=== PATIENT | male | born 1955 | race African-American/Black ===

== ENCOUNTER 2019-06-03 08:28 | Outpatient (CLI) | payer OTHER, SELFPAY ==
--- NOTE | 2019-06-03 08:34 | ECHO_ITS ---
Patient Info Name: Angel Lamas Age: 63 years : 1955 Gender: Male Ht: 72 in Wt: 200 lbs BSA: 2.16 m2 HR: 64 bpm BP: 172 / 86 mmHg Technical Quality: Fair Exam Date: 06/03/2019 8:43 AM Exam Location: [facility] Patient Status: Outpatient Admit Date: 06/03/2019 Staff Ordering Physician: Cade Houston MD Glass Production Machine Operator: Becky Starr RDCS Attending Provider: Cade Houston MD Referring Physician: Rosemarie PAYNE; Exam Type: CA echo doppler color flow Study Info Indications R01.1 - Cardiac murmur, unspecified Complete two-dimensional, color flow and Doppler transthoracic echocardiogram is performed. Summary 1. Left ventricular chamber dimension is normal. 2. Ventricular septum is sigmoid shaped. 3. Left ventricular systolic function is normal, estimated at 65-70%. 4. The left ventricular diastolic function is normal. 5. There is mild aortic valve sclerosis. 6. Mild systolic anterior motion of mitral valve. 7. The mitral valve has thickened leaflets. 8. No pulmonary hypertension, estimated pulmonary arterial systolic pressure is 30 mmHg. 9. There is trace pulmonic regurgitation. Left Ventricle Tissue doppler is not performed. Ventricular septum is sigmoid shaped. Left ventricular chamber dimension is normal. Left ventricular systolic function is normal, estimated at 65-70%. The left ventricular diastolic function is normal. Right Ventricle Right ventricular chamber dimension is normal. Right ventricular systolic function is normal. Left Atria Left atrial chamber dimension is normal. Right Atria Right atrial chamber dimension is normal. Aortic Valve The aortic valve is trileaflet. There is mild aortic valve sclerosis. There is no aortic valve stenosis. There is no aortic valve regurgitation. Pulmonic Valve There is trace pulmonic regurgitation. Mitral Valve Mild systolic anterior motion of mitral valve. The mitral valve has thickened leaflets. There is no mitral valve stenosis. There is no mitral valve regurgitation. Tricuspid Valve There is no tricuspid valve regurgitation. No pulmonary hypertension, estimated pulmonary arterial systolic pressure is 30 mmHg. Pericardium/Pleural There is no pericardial effusion. Inferior Vena Cava Normal inferior vena cava with >50% collapse upon inspiration consistent with normal right atrial pressure, 5 mmHg. Aorta The aortic root size at the sinus of Valsalva is normal. Tricuspid Valve Name Value Normal TV Regurgitation Doppler TR Peak Velocity 248 cm/s TR Peak Gradient 25 mmHg Estimated PAP/RSVP RA Pressure 5 mmHg <=5 PA Systolic Pressure 30 mmHg <36 RV Systolic Pressure 30 mmHg <36 Report Signatures
== END 2019-06-03 08:29 | disposition home or self-care (01) ==
PROVIDERS: PCP Family Medicine; Visit Provider Family Medicine
DX: R01.1 Cardiac murmur, unspecified (principal); I35.1 Nonrheumatic aortic (valve) insufficiency
CPT/HCPCS: 93306

== ENCOUNTER 2021-02-21 18:11 | Emergency (ER) | payer OTHER, SELFPAY ==
--- NOTE | ~2021-02-21 | CT_ITS ---
IMPRESSION: Numerous bilateral renal masses of variable size and attenuation, some with calcification. Multiple cysts are suspected. Benign or solid malignan t neoplasm is not excluded on this limited noncontrast examination. Consider MR I correlation. Diverticulosis of left and right colon; no CT evidence of diverticulitis Prostate enlargement and calcification. EXAMINATION: CT abdomen pelvis wo con DATE: 02/21/2021 19:44 INDICATION: Hematuria TECHNIQUE: Computed tomography (CT) of the abdomen and pelvis was performed without intravenous contr ast. Automated exposure control and iterative reconstruction technique were employed. Exam dose: 462 .84 mGy-cm total exam DLP. COMPARISON: 11/15/2016 ultrasound of the kidneys FINDINGS: The lung bases are clear. Normal heart size. No pericardial or pleural effusion. Small sliding hiatal hernia. The liver, gallbladder, bile ducts, spleen, pancreas and pancreatic duct are unremarkable. Normal morphology of the right adrenal gland. There are numerous bilateral renal masses, some with calcification. These are of variable size as wel l as variable attenuation. Multiple cysts are likely but benign or malignant solid renal neoplasm on either side is not excluded on this limited noncontrast examination. Prostate enlargement and calcification. The urinary bladder is unremarkable. Diverticulosis of left and right colon; no CT evidence of diverticulitis. Normal appendix. No bowel o bstruction, bowel wall thickening, pneumatosis or intraperitoneal free air is detected. There is abdominal aortic calcification but no aneurysm. No intraperitoneal or retroperitoneal or pelvic mass lesion or adenopathy or ascites is noted, with t he exception of possible renal masses. Small fat-containing umbilical hernia. Status post anterior and posterior and interbody lumbar spinal fusion at L4 S1. Severe bilateral hip osteoarthritis. IMPRESSION: Numerous bilateral renal masses of variable size and attenuation, some with calcificatio n. Multiple cysts are suspected. Benign or solid malignant neoplasm is not excluded on this limited n oncontrast examination. Consider MRI correlation. Diverticulosis of left and right colon; no CT evidence of diverticulitis Prostate enlargement and calcification. Reviewed, dictated and finalized at [facility]. Reviewed, dictated and finalized at location [facility]. [place] MARKETING COORDINATOR
[2021-02-21 18:19] VITALS: BP 130/95; PULSE 80; RESP 18; TEMP 36.6; O2SAT 95
[2021-02-21 18:31] VITALS: BP 132/84; PULSE 79; RESP 15; O2SAT 98
--- NOTE | 2021-02-21 18:45 | ED.GENADULT ---
HPI - General Adult General Chief complaint: Urogenital-Male <Srinath Damon PA-C - Last Filed: 02/21/21 20:46> Stated complaint: Blood in Urine <Srinath Damon PA-C - Last Filed: 02/21/21 20:46> Time Seen by Provider: 02/21/21 18:43 <Srinath Damon PA-C - Last Filed: 02/21/21 20:46> Source: patient <TAMIKO Vera Last Filed: 02/21/21 20:46> Mode of arrival: ambulatory <TAMIKO Vera Last Filed: 02/21/21 20:46> Limitations: no limitations <TAMIKO Vera Last Filed: 02/21/21 20:46> History of Present Illness HPI narrative: Patient 65-year-old male with chief complaint of painful urination and hematuria over the past 4 days. Patient states that he has also experienced urinary urgency. Patient denies a history of recurrent urinary tract infections or kidney stones. Patient denies any fever, abdominal pain, chills, nausea, vomiting, diarrhea or any other symptoms. <TAMKIO Vera Last Filed: 02/21/21 20:46> Related Data Home medications: Home Medications Medication Instructions Recorded Confirmed amitriptyline 02/21/21 amlodipine 02/21/21 atorvastatin 02/21/21 hydrochlorothiazide 02/21/21 metformin mg PO 02/21/21 02/21/21 quinapril mg 02/21/21 <Srinath Damon PA-C - Last Filed: 02/21/21 20:46> Allergies/adverse reactions: Allergies Allergy/AdvReac Type Severity Reaction Status Date / Time No Known Allergies Allergy Mild Verified 02/21/21 18:32 <TAMIKO Vera Last Filed: 02/21/21 20:46> Review of Systems Review of Systems: CONSTITUTIONAL: Denies fever, chills, or sweats. EYES: Denies visual changes, redness, or discharge. ENT: Denies rhinorrhea, congestion, sore throat, or otalgia. CARDIOVASCULAR: Denies chest pain, palpitations, or edema. RESPIRATORY: Denies cough or dyspnea. GASTROINTESTINAL: Denies abdominal pain, nausea, vomiting, or diarrhea. GENITOURINARY: Reports dysuria or hematuria. SKIN: Denies rash or itching. MUSCULOSKELETAL: Denies back pain, joint pain, or myalgia. NEUROLOGIC: Denies headache, numbness, dizziness, or weakness. PSYCHIATRIC: Denies anxiety or depression. <Srinath Damon PA-C - Last Filed: 02/21/21 20:46> PMFSH Past Medical History Medical History: Medical History (Updated 02/21/21 @ 20:43 by Srinath Damon PA-C) Acute diverticulitis Acute non-recurrent maxillary sinusitis BMI 28.0-28.9,adult Dermatitis Encounter for prostate cancer screening Heart murmur on physical examination Persistent microalbuminuria associated with type 2 diabetes mellitus <Srinath Damon PA-C - Last Filed: 02/21/21 20:46> Family History Family History: Family History (Updated 09/25/18 @ 16:20 by DOCTOR UNKNOWN) Father Patient's father is in good health Family history of cardiovascular disease <Srinath Damon PA-C - Last Filed: 02/21/21 20:46> Social History Social History: Social History Smoking status: Never smoker Alcohol intake: never <Srinath Damon PA-C - Last Filed: 02/21/21 20:46> Exam Narrative: GENERAL: Well-appearing, well-nourished, and in no acute distress. Patient smiling and talking normally. CHEST: Clear to auscultation. No respiratory distress. No wheezes rales or rhonchi HEART: Regular rate and rhythm. ABDOMEN: Soft, nontender, nondistended, normal active bowel sounds. SKIN: Warm, dry, no rash. NEURO: Alert and oriented x3. PSYCH: Normal mood and affect. <Srinath Damon PA-C - Last Filed: 02/21/21 20:46> Course METAL SORTER/PA Physician Supervision For this patient encounter, I reviewed the METAL SORTER or PA documentation, treatment plan, and medical decision making. <Fer Alexis MD - Last Filed: 02/21/21 21:43> Vital Signs Vital signs: Vital Signs Temperature 97.9 F 02/21/21 18:19 Pulse Rate 80 02/21/21 18:19 Respiratory Rate 18 02/21/21 18:19 Blood
[2021-02-21 19:26] LABS: Basophils Percent Auto 0.5 % (0.2-1.2); Eosinophils Absolute Auto 0.1 K/mm3 (0-0.3); Eosinophils Percent Auto 1.6 % (0-4.4); Hematocrit 41.6 % (42.0-52.0); Hemoglobin 12.5 g/dL (14.0-18.0); Immature Granulocyte Absolute 0.01 K/mm3 (0.00-0.031); Immature Granulocyte Percent A 0.2 % (0-0.5); Immature Platelet Fraction Pct 9.7 % (0.9-11.2); Lymphocytes Absolute Auto 2.98 K/mm3 (0.9-3.2); Lymphocytes Percent Auto 47.1 % (18.3-44.2); Mean Corpuscular Hemoglobin 21.3 pg (26-34); Mean Corpuscular Volume 70.7 fl (80-100); Mean Platelet Volume 11.9 fl (7.4-10.4); Monocytes Absolute Auto 0.4 K/mm3 (0.1-0.6); Monocytes Percent Auto 5.8 % (2.6-8.5); Neutrophils Absolute Auto 2.8 K/mm3 (1.3-6.7); Neutrophils Percent Auto 44.8 % (45.5-73.1); Platelet Count Result 201 k/mm3 (150-375); Red Blood Count 5.88 M/mm3 (4.6-6.20); Red Cell Distribution Width 15.4 % (11.5-14.5); White Blood Count 6.3 K/mm3 (4.5-10.0)
[2021-02-21 19:34] LABS: Add Urine Microscopic? YES; Appearance Urine Cloudy (Clear); Bilirubin Urine Negative (Negative); Blood Urine 3+ (Negative); Color Urine Red (Yellow); Glucose Urine UA Negative (Negative); Ketones Urine Negative (Negative); Leukocyte Esterase Ur Negative LEU/UL (Negative); Nitrate Urine Negative (Negative); Protein Urine 2+ mg/dL (Negative); RBC Urine >75 /hpf (0-2); Specific Grav Ur 1.015 (1.001-1.035); Urobilinogen Urine Negative mg/dL (<2.0)
[2021-02-21 19:37] LABS: Alanine Aminotransferase 20 U/L (4-50); Albumin Level 4.8 g/dL (3.5-5.1); Alkaline Phosphatase 75 U/L (38-126); Anion Gap 12 mmol/L (8-16); Aspartate Amino Transferase 25 U/L (17-59); Bilirubin,Total 0.4 mg/dL (0.2-1.3); Blood Urea Nitrogen 37 mg/dL (9-20); Calcium 10.2 mg/dL (8.4-10.2); Carbon Dioxide 22 mmol/L (22-30); Chloride 100 mmol/L (98-107); Estimated CRCL calculation 40 ml/min; Estimated Glomerular Filt Rate 43; Glucose 111 mg/dL (65-110); Potassium 4.8 mmol/L (3.4-5.0); Sodium 134 mmol/L (137-145)
== END 2021-02-21 20:59 | disposition home or self-care (01) ==
PROVIDERS: Emergency Medicine; Emergency Provider Emergency Medicine; PCP Family Medicine
DX: N28.89 Other specified disorders of kidney and ureter (principal); R31.9 Hematuria, unspecified; E11.9 Type 2 diabetes mellitus without complications; Z79.84 Long term (current) use of oral hypoglycemic drugs
CPT/HCPCS: 36415; 74176; 80053; 81001; 85025; 85055; 87086; 99284

== ENCOUNTER 2021-08-15 13:42 | Outpatient (CLI) | payer OTHER, SELFPAY ==
--- NOTE | 2021-08-15 14:00 | ECG_ITS ---
Measurements Intervals [place] Rate: 79 P: 67 AR: 178 QRS: 36 QRSD: 89 T: 79 QT: 367 QTc: 421 Interpretive Statements SINUS RHYTHM BASELINE ARTIFACT RSR' V1/V2 LOW-VOLTAGE QRS IN LIMB LEADS BORDERLINE ECG NO PREVIOUS ECG AVAILABLE FOR COMPARISON Electronically Signed On 08-15-2021 15:00:01 CDT by Oscar Hyde M.D.
== END 2021-08-15 13:43 | disposition home or self-care (01) ==
LOC: ANHSURGERY 13:48
PROVIDERS: PCP Family Medicine; Visit Provider Surgery
DX: K40.90 Unilateral inguinal hernia, without obstruction or gangrene, not specified as recurrent (principal); K42.9 Umbilical hernia without obstruction or gangrene
CPT/HCPCS: 36415; 86850; 86900; 86901; 93005

== ENCOUNTER 2021-08-23 00:22 | Day surgery (SDC) | payer OTHER, SELFPAY ==
[2021-08-10 15:01] VITALS: BMI 24.4
--- NOTE | 2021-08-10 15:10 | PC.NURSE ---
Report to the Outpatient Waiting Room, entrance under the green pavilion located off [facility], at time _0800_ on date _08/19/21_. OR Time: _1000_. - You and your visitor will be asked a series of questions to screen for COVID 19 for your protection. - Only one visitor is allowed at this time. - The patient visitor is requested to leave or wait in car when not with patient. - A mask is required within the hospital. Patients may have clear liquids (water, carbonated beverages, clear teas, apple juice) until 3 hours prior to surgery (0700 AM) with a maximum of 20 ounces. - No food from midnight until time of surgery Take the following medications with a SIP of water the morning of surgery: _AMLODIPINE_ Medications to discontinue per ANESTHESIA - ALL VITAMINS AND SUPPLEMENTS 3 DAYS PRIOR TO SURGERY, Date to take last dose 08/15/21_ Please no deodorant, or body powder the day of surgery. No jewelry (including any body piercings) or valuables the day of surgery, leave them at home. Please take a shower or bath the night before, or the morning of, surgery with an antibacterial soap. Wear comfortable, loose fitting clothing. - Jewelry must be removed prior to entering the operating room. Rings and piercings that are not removed may be cut off. - The hospital will not accept responsibility for valuables. - Please leave all valuables, including medications, at home the day of surgery. If you are going home after surgery, a licensed sales route driver must drive you home. - NO public transportation without another adult. - We recommend that an adult stay with you for 24 hours following discharge. - We also recommend that you do not drive, make important decision, drink alcoholic beverages, or take any drugs that were not prescribed by your health care provider for at least 24 hours after your discharge time. Follow any additional instructions given to you from your surgeon. HIBICLENS SHOWER AM OF SURGERY If you or anyone in your household have experienced Covid symptoms in the past week, please notify your surgeon or the nurse liaison at the phone number below for possible testing. Telephone instructions given to ___PT and asked if any additional questions and then verbalized understanding. Patient advised to call surgeon office or pre surgery nurse liaison [phone] if any additional questions.
--- NOTE | 2021-08-17 13:45 | PC.NURSE ---
Report to the Outpatient Waiting Room, entrance under the green pavilion located off [facility], at time __10:00AM on date ___08/23/21____. OR Time: _12:00PM . - You and your visitor will be asked a series of questions to screen for COVID 19 for your protection. - Only one visitor is allowed at this time. - The patient visitor is requested to leave or wait in car when not with patient. - A mask is required within the hospital. Patients may have clear liquids (water, carbonated beverages, clear teas, apple juice) until 3 hours prior to surgery with a maximum of 20 ounces. - No food from midnight until time of surgery - Infants may have breast milk until 4 hours before surgery, formula 6 hours prior to surgery. - Children will be allowed to drink immediately following surgery. If applicable, please bring a bottle or sippy cup to assist with drinking. Juice, water, soda, and popsicles are readily available. For infants on formula, please bring formula the day of surgery. Pacifiers are allowed. Take the following medications with a SIP of water the morning of surgery: __AMLODIPINE Medications to discontinue per physician __HOLD ALL VITAMINS/SUPPLEMENTS 3 DAYS PRE-OP Date to take last dose___08/19/21 Please no make-up, nail trinidadian, hairspray, perfume, deodorant, or body powder the day of surgery. No jewelry (including any body piercings) or valuables the day of surgery, leave them at home. Please take a shower or bath the night before, or the morning of, surgery with an antibacterial soap. Wear comfortable, loose fitting clothing. Children are encouraged to wear pajamas. - Jewelry must be removed prior to entering the operating room. Rings and piercings that are not removed may be cut off. - The hospital will not accept responsibility for valuables. - Please leave all valuables, including medications, at home the day of surgery. If you are going home after surgery, a licensed class c driver must drive you home. - NO public transportation without another adult. - We recommend that an adult stay with you for 24 hours following discharge. - We also recommend that you do not drive, make important decision, drink alcoholic beverages, or take any drugs that were not prescribed by your health care provider for at least 24 hours after your discharge time. For Pediatric surgeries, we recommend two adults accompany the child home (only one inside the building at this time). Follow any additional instructions given to you from your surgeon. If you or anyone in your household have experienced Covid symptoms in the past week, please notify your surgeon or the nurse liaison at the phone number below for possible testing. Telephone instructions given to __PATIENT and asked if any additional questions and then verbalized understanding. Patient advised to call surgeon office or pre surgery nurse liaison [phone] if any additional questions.
[2021-08-23] VITALS (8 sets, daily range): BP systolic 132–168; BP diastolic 76–92; PULSE 71–91; RESP 14–20; TEMP 36.2–36.7; O2SAT 100
--- NOTE | 2021-08-23 10:45 | WPDANESEPPF ---
Anes - Initial Pre Proc Eval Procedure: Operation Date: 08/23/21 12:00 Proposed Procedures p Laparoscopic Right Inguinal Hernia Repair with Mesh, Possible Open, Suture Repair of Umbilical Hernia - aHroon White MD Date/Time: 08/23/21 10:45 Surgeon: Haroon White MD Pre Op Diagnosis: Right inguinal hernia, small umbilical hernia Patient Data Age: 66 Gender: M Height: 1.83 m Weight: 81.2 kg Last Vital Signs Temp 36.2 C L 08/23/21 10:25 Pulse 90 08/23/21 10:25 Resp 18 08/23/21 10:25 BP 158/84 H 08/23/21 10:25 Pulse Ox 100 08/23/21 10:25 O2 Del Method Room Air 08/23/21 10:25 Allergies Allergy/AdvReac Type Severity Reaction Status Date / Time No Known Allergies Allergy Mild Verified 08/23/21 10:29 Home Medications Medication Instructions Recorded Confirmed Type amitriptyline 25 mg tablet 25 mg PO . q.h.s. #90 tabs 02/22/21 08/23/21 Rx amlodipine 5 mg tablet 5 mg PO DAILY #90 tabs 02/22/21 08/23/21 Rx cetirizine 10 mg tablet (All Day 5 mg PO DAILY PRN allergy symptoms 02/22/21 08/23/21 Rx Allergy (cetirizine)) #30 tabs clobetasol 0.05 % topical gel 1 applic topical BID 2 weeks #30 02/22/21 08/23/21 Rx grams metformin 500 mg tablet,extended 1,000 mg PO BID #360 tabs 02/22/21 08/23/21 Rx release 24 hr tramadol 50 mg tablet 50 mg PO Q6H PRN pain #60 tabs 03/03/21 08/23/21 Rx fluticasone propionate 50 1 spray intranasal BID #48 mL 05/02/21 08/23/21 Rx mcg/actuation nasal spray,suspension (Allergy Relief (fluticasone)) hydrochlorothiazide 12.5 mg tablet 12.5 mg PO DAILY #90 tabs 07/24/21 08/23/21 Rx methocarbamol 750 mg tablet 750 mg PO QID PRN spasms #120 tabs 07/26/21 08/23/21 Rx ascorbic acid,ascorbate sodium 250 1 yina PO QAM 08/04/21 08/23/21 History mg-elderberry fruit 12.5 mg lozenge (Sambucus Elderberry Vitamin C) diclofenac sodium 1 % topical gel 2 g topical QID 08/04/21 08/23/21 History (Arthritis Pain (diclofenac)) omega-3 fatty acids 1,000 mg 1,000 mg PO DAILY 08/04/21 08/23/21 History capsule tamsulosin 0.4 mg capsule 0.4 mg PO DAILY 08/04/21 08/23/21 History zolpidem 10 mg tablet 10 mg PO . q.h.s. PRN insomnia #30 08/08/21 08/23/21 Rx tabs atorvastatin 10 mg tablet 10 mg PO DAILY #30 tabs 08/09/21 08/23/21 Rx omeprazole 40 mg capsule,delayed 40 mg PO DAILY #30 caps 08/09/21 08/23/21 Rx release quinapril 40 mg tablet 40 mg PO QAM 08/10/21 08/23/21 History Patient hx anesthesia problems: none Family hx anesthesia problems: none Results Review: All pre-operative results and documents have been reviewed as part of the pre-operative evaluation. [facility] Past Medical History Medical History (Updated 08/09/21 @ 15:19 by Cade Houston MD) Acute diverticulitis Acute non-recurrent maxillary sinusitis BMI 24.0-24.9, adult BMI 28.0-28.9,adult Dermatitis Encounter for prostate cancer screening Heart murmur on physical examination Persistent gross hematuria Persistent microalbuminuria associated with type 2 diabetes mellitus Polycystic kidney disease Reducible right inguinal hernia Surgical History Surgical History History of back surgery 2007 and 2008 Hx of laminectomy 01/02/2020- [facility] Family History Family History Father Family history of cardiovascular disease Hypertension Cerebrovascular accident Mother Diabetes mellitus Hypertension Social History Social History Smoking packs per day: 0.5 Smoking cigarettes per day: 10.0 Years smoked: 9 Smoking pack-years: 4.50 Smoking status: Former smoker Tobacco type: cigarettes Second hand tobacco smoke exposure: No Smoking end date: 02/26/89 Additional smoking assessment comments: approx. smoked for 5-6 years Alcohol intake: current
[2021-08-23] MEDS: LACTATED RINGERS 1,000 ML 30 ML IV CONT ×2 (10:54→14:25)
[2021-08-23] MEDS: ACETAMINOPHEN 500 MG TABLET 1000 MG PO (10:55)
[2021-08-23] MEDS: KETOROLAC 15 MG/ML VIAL (*BKC) IV PUSH (10:55)
[2021-08-23 11:12] LABS: Glucose Point of Care 138 mg/dl (65-105)
--- NOTE | 2021-08-23 12:05 | WPDHPUPDATE1 ---
History and Physical Update Update Date/Time: 08/23/21 12:05 History and Physical has been reviewed, including an updated exam of the patient. There are NO changes in the patient's condition. Risks, benefits, and alternatives have been discussed and questions answered. Patient agrees to proceed with procedure.
[2021-08-23] MEDS: ceFAZolin 2 GM/D5W 50 ML 2 GM/50 ML BAG IVPB (12:09)
[2021-08-23] MEDS: LIDO 1%/EPINEPHRINE/PF 1:200,000 30 ML VIAL XX (14:14)
[2021-08-23 14:57] LABS: Glucose Point of Care 165 mg/dl (65-105)
--- NOTE | 2021-08-23 14:57 | W.PM.PROC2 ---
Procedure Note - Detailed Date of Procedure 08/23/21 Pre-op Diagnosis Right inguinal hernia, small umbilical hernia Post-op Diagnosis Same ( Indirect right inguinal hernia.) Procedure Performed 1. laparoscopic totally extraperitoneal Right inguinal hernia repair with mesh 2. Suture repair of small umbilical hernia Surgeon Haroon White MD Train Announcer PAULETTE Bernal ,OR laboratory assistant Anesthesia General Indications Bulging and pain on the right groin slight bulging and some discomfort to exam at the umbilicus. Findings Patient was found to have a small right indirect inguinal hernia with lipoma of the cord on it. This was able to be reduced into the retroperitoneum. Patient has a small approximately 8 mm umbilical fascial defect with preperitoneal fat in it. Description of Procedure After appropriate marking of the operative site prior to surgery, the patient was taken to the operating room. After induction of adequate general endotracheal anesthesia by [place] [facility] staff, the patient was carefully prepped and draped in a sterile fashion. A Brice catheter was placed without difficulty prior to prepping. A time-out was then performed confirming the procedure and site of surgery on the right. An IO band drape was used to cover the skin to prevent mesh from touching the skin and to help us avoid infection of the mesh. Following this, local anesthetic was infiltrated into the umbilical area and a transverse incision was made just below the umbilicus. On the right side of that curvilinear incision I carefully dissected down to the the anterior rectus sheath on the right and then made a 1 cm vertical slit in the fascia just off the midline. The rectus muscle was retracted to right and then just in front of the posterior rectus sheath, a dissecting balloon was passed onto the pubic bone. After placing slight pressure on the left groin area, this was insufflated with 30 pumps, while watching with the 0 degree laparoscope. It appeared that I was in the proper plane. Following this, the dissecting balloon was removed and replaced by a Murphy cannula with a circular 20 cc conforming balloon. CO2 gas was connected and the pressure in the preperitoneal space was insufflated to 8 mmHg CO2. Following this, the 0 degree laparoscope was used to carefully place two 5mm [employer] slim trocars, just to the left of midline. One suprapubic and other one assisted between the umbilicus and the pubic bone. Tedious dissection then occurred in the preperitoneal space exposing the Joshua's ligament, the cord structures, the muscular tissue anteriorly, and the retroperitoneum. The right epigastric vessels were pushed anteriorly and I dissected into the plane laterally along the anterior abdominal wall to expose the anterior surface of the peritoneum in that area. This was then able to be dissected back and we could visualize the posterior peritoneum. During this dissection an apparent indirect inguinal hernia sac was seen entering the groin area just lateral to the epigastric vessels inferiorly. This was dissected out and from the cord structures and we could see its connection to the posterior peritoneal line. I then dissected up to the level of the umbilicus and it was ready for mesh placement. After carefully confirming all sites and that the mesh would cover the direct space, I carefully rolled the Large 3D Bard mesh (Mid) and slid this through the 12 mm trocar at the umbilical level down into the preperitoneal space. This unfurled nicely and sat nicely against the right groin structures. It nicely covered all spaces and it went back nicely into the preperitoneal space along the anterior-superior iliac spine. I took a picture of it carefully, which showed that the mesh will cover the preperitoneal groin well, and had come down to the posterior border of the peritoneum. Once this was accomplished, I took the patient out of Trendelenburg position, ro
--- NOTE | 2021-08-23 14:58 | SUR.PHASEI ---
1430; ICE PACK APPLIED TO LOW ABDOMEN AND SCROTAL SUPPORT INTACT
--- NOTE | 2021-08-23 15:06 | SUR.PHASEI ---
1450; PT EATING ICE CHIPS 1505; PT ATTEMPTING TO VOID PER URINAL.
--- NOTE | 2021-08-23 15:16 | SUR.PHASEI ---
PT AWAKE AND ALERT. EATING ICE CHIPS. DENIES PAIN.
== END 2021-08-23 16:19 | disposition home or self-care (01) ==
PROVIDERS: PCP Family Medicine; Visit Provider Surgery
PROC: (CPT 49650; principal; 2021-08-23 12:00)
DX: K40.90 Unilateral inguinal hernia, without obstruction or gangrene, not specified as recurrent (principal); K42.9 Umbilical hernia without obstruction or gangrene; D17.6 Benign lipomatous neoplasm of spermatic cord; Q61.3 Polycystic kidney, unspecified; E11.9 Type 2 diabetes mellitus without complications; Z87.891 Personal history of nicotine dependence; Z79.84 Long term (current) use of oral hypoglycemic drugs
CPT/HCPCS: 49650; 49585; 82948; 88302; A9270; C1781; J0330; J0690; J1100; J1170; J1885; J2405; J2704; J2710; J3010; J7120

== ENCOUNTER 2023-09-02 19:05 | Emergency (ER) | payer OTHER, SELFPAY ==
--- NOTE | ~2023-09-02 | CT_ITS ---
CT of the Abdomen and Pelvis: Indication: Right inguinal pain Technique: 2.5 mm axial scans were obtained through the abdomen and pelvis following intravenous adm inistration of 100 cc of Omnipaque 350. Dose reduction technique was used on this scan by utilizing a utomated exposure control and iterative reconstruction technique. The dose-length product (DLP) was 3 86.96 mGy-cm. COMPARISON: 02/21/2021 Findings: Scans through the lung bases are unremarkable. The liver, spleen, pancreas, gallbladder, and adrenal glands are within normal limits. Numerous bilat eral renal cysts are again present, several which associated extensive peripheral calcification, varun lar to prior exam. There are atherosclerotic calcifications of the aorta. No lymphadenopathy. No bowel obstruction or bowel wall thickening. There is no evidence to suggest acute appendicitis. Images through the pelvis were performed. Urinary bladder unremarkable. No pelvic mass seen. No ascit es. Impression: No acute abnormality evident. Polycystic kidney disease bilaterally, which is essentially stable from prior exam. Reviewed, dictated and finalized at location M. Impression: No acute abnormality evident. Polycystic kidney disease bilaterally, which is essentially stable from prior e xam.
--- NOTE | ~2023-09-02 | XR_ITS ---
EXAM: XR hip RT 2V w AP pelvis DATE: 09/02/2023 21:46 HISTORY: hip pain . COMPARISON: None available. FINDINGS: Partially visualized lumbar fusion hardware. Normal mineralization. No fracture or disloca tion. No lytic or blastic lesion. Severe bilateral hip arthritis. No erosion or periosteal change. So ft tissues within normal limits. IMPRESSION: No acute osseous finding in the pelvis or right hip. Reviewed, dictated and finalized at location K.
[2023-09-02 19:10] VITALS: BP 121/67; PULSE 100; RESP 19; TEMP 36.4; O2SAT 100
--- NOTE | 2023-09-02 19:50 | ED.EXTPRO ---
HPI - Extremity Problem General Chief complaint: Extremity Problem,Nontraumatic Stated complaint: right leg pain Time Seen by Provider: 09/02/23 19:42 History of Present Illness HPI Narrative: Patient is a 68 year old male with history of diverticulitis, arthritis, CKD, prostate cancer, R inguinal hernia s/p hernia repair here with bilateral inguinal pain. Patient notes that his symptoms have been present for the last couple of months. He notes that it is worse on the right side than the left side. He notes that the pain starts in his right inguinal area and radiates down into his upper medial right thigh. 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 Pain is worse with opening his leg. He noes he has taken his home tramadol for pain which has quit working to help with this pain and prompted him to come into the ER. His pain is associated with a tingling feeling over the medial right thigh. He is able to ambulate and walked himself into the ER today. He lives about 10 minutes from the ER. No difficulty with urinating or defecating, no fever or chills. He does have history of multiple prior back surgeries, in [id number], does not believe his back pain is worse than usual. Related Data Home Medications Medication Instructions Recorded Confirmed omega-3 fatty acids 1,000 mg 1,000 mg PO DAILY 08/04/21 06/12/23 capsule cholecalciferol (vitamin D3) 50 50 mcg PO DAILY 01/10/23 06/12/23 mcg (2,000 unit) capsule elderberry fruit 350 mg capsule mg PO 01/10/23 06/12/23 multivitamin 1 tablet PO DAILY 01/10/23 06/12/23 vitamin K2 100 mcg capsule 100 mcg PO DAILY 01/10/23 06/12/23 ferrous sulfate 325 mg (65 mg 325 mg PO DAILY 04/05/23 06/12/23 iron) tablet (Feosol) Allergies Allergy/AdvReac Type Severity Reaction Status Date / Time No Known Allergies Allergy Mild Verified 06/12/23 14:18 Review of Systems Review of Systems: All systems reviewed & are unremarkable except as noted in HPI and below PMFSH Past Medical History Medical History Acute diverticulitis Acute non-recurrent maxillary sinusitis BMI 23.0-23.9, adult BMI 24.0-24.9, adult BMI 28.0-28.9,adult Chronic kidney disease (CKD) stage G3b/A1, moderately decreased glomerular filtration rate (GFR) between 30-44 mL/min/1.73 square meter and albuminuria creatinine ratio less than 30 mg/g BUN 24 with creatinine 1.75 with GFR 42 on 01/18/2022. BUN 23, creatinine 1.63, GFR 45 on 09/09/2022. BUN 22, creatinine 1.74, GFR 42 on 02/24/2023. Chronic right hip pain severe osteoarthritis both hips on CT of the abdomen and pelvis 02/21/2021 Dermatitis Dysuria Encounter for prostate cancer screening PSA 0.82 on 01/18/2022. PSA 0.74 on 02/24/2023 Heart murmur on physical examination Hordeolum externum left eye, unspecified eyelid (~03/26/23) Insomnia Persistent gross hematuria Urinalysis normal on 01/18/2022. Persistent microalbuminuria associated with type 2 diabetes mellitus Repeat urine microalbumin ratio was normal at 24 on 01/18/2022. Microalbumin ratio normal at 17 on 02/24/2023. Polycystic kidney disease Reducible right inguinal hernia Renal insufficiency, mild BUN 24 with creatinine 1.75 with GFR 42 on 01/18/2022. BUN 23, creatinine 1.63, GFR 45 on 09/09/2022. Right hip pain Right knee pain Right thigh pain Surgical History Surgical History H/O inguinal hernia repair Right inguinal hernia repair w mesh, suture repair of umb 08/23/21 History of back surgery 2007 and 2008 Hx of laminectomy 01/02/2020- [facility] Family History Family History Father Family history of cardiovascular disease Hypertension Cerebrovascular accident Mother Diabetes mellitus Hypertension Social History Social History (Reviewed 06/12/23 @ 14:
[2023-09-02] MEDS: MORPHINE SULFATE (*CRX) 4 MG/ML INJ IV PUSH (21:16)
[2023-09-02] MEDS: ONDANSETRON INJ 4 MG/2 ML VIAL IV PUSH (21:16)
[2023-09-02 21:17] VITALS: BP 129/84; PULSE 87; RESP 14; O2SAT 99
[2023-09-02 21:25] LABS: Basophils Percent Auto 0.4 % (0.2-1.2); Eosinophils Absolute Auto 0.1 K/mm3 (0-0.3); Eosinophils Percent Auto 1.6 % (0-4.4); Hematocrit 39.7 % (42.0-52.0); Hemoglobin 12.1 g/dL (14.0-18.0); Immature Granulocyte Absolute 0.01 K/mm3 (0.00-0.031); Immature Granulocyte Percent A 0.1 % (0-0.5); Immature Platelet Fraction Pct 9.2 % (0.9-11.2); Lymphocytes Percent Auto 44.7 % (18.3-44.2); Mean Corpuscular HGB Conc 30.5 g/dl (32-36); Mean Corpuscular Hemoglobin 21.5 pg (26-34); Mean Corpuscular Volume 70.6 fl (80-100); Mean Platelet Volume 11.1 fl (7.4-10.4); Monocytes Absolute Auto 0.4 K/mm3 (0.1-0.6); Monocytes Percent Auto 6.3 % (2.6-8.5); Neutrophils Absolute Auto 3.2 K/mm3 (1.3-6.7); Neutrophils Percent Auto 46.9 % (45.5-73.1); Platelet Count Result 197 k/mm3 (150-375); Red Blood Count 5.62 M/mm3 (4.6-6.20); Red Cell Distribution Width 15.9 % (11.5-14.5); White Blood Count 6.9 K/mm3 (4.5-10.0)
[2023-09-02 21:35] LABS: Alanine Aminotransferase 15 U/L (6-50); Albumin Level 4.8 g/dL (3.5-5.1); Alkaline Phosphatase 79 U/L (38-126); Anion Gap 15 mmol/L (4-12); Aspartate Amino Transferase 24 U/L (17-59); Bilirubin,Total 0.5 mg/dL (0.2-1.3); Blood Urea Nitrogen 36 mg/dL (9-20); Calcium 9.9 mg/dL (8.4-10.2); Carbon Dioxide 23 mmol/L (22-30); Chloride 102 mmol/L (98-107); Estimated CRCL calculation 33 ml/min; Estimated Glomerular Filt Rate 38; Glucose 103 mg/dL (65-110); Potassium 4.4 mmol/L (3.4-5.0); Sodium 140 mmol/L (137-145)
[2023-09-02] MEDS: SODIUM CHLORIDE 0.9% IV 1,000 ML 999 ML IV CONT (21:44)
[2023-09-02 21:50] LABS: Anisocytosis 1+; Microcytosis 1+ (NORMAL); Ovalocytes 1+; Platelet Estimate Adequate (Adequate); Schistocytes None Seen
[2023-09-02 21:57] LABS: Creatine Kinase 144 U/L (55-170)
[2023-09-03 00:52] VITALS: BP 155/91; PULSE 82; RESP 14; TEMP 36.8; O2SAT 100
== END 2023-09-03 01:18 | disposition home or self-care (01) ==
PROVIDERS: Emergency Provider Student in an Organized Health Care Education/Training Program; PCP Family Medicine
DX: M25.551 Pain in right hip (principal); M25.552 Pain in left hip; N17.9 Acute kidney failure, unspecified; N18.32 Chronic kidney disease, stage 3b; E11.22 Type 2 diabetes mellitus with diabetic chronic kidney disease; M19.90 Unspecified osteoarthritis, unspecified site; Q61.3 Polycystic kidney, unspecified; Z87.891 Personal history of nicotine dependence; Z79.52 Long term (current) use of systemic steroids; Z79.899 Other long term (current) drug therapy
CPT/HCPCS: 36415; 73502; 74177; 80053; 82550; 85025; 85055; 96361; 96374; 96375; 99284; J2270; J2405; J7030; Q9967

== ENCOUNTER 2023-09-26 00:36 | Emergency (ER) | payer OTHER, SELFPAY ==
--- NOTE | ~2023-09-26 | XR_ITS ---
AP view of the pelvis and AP and lateral views of the right hip Clinical history: Pain Findings: No acute fracture or dislocation is seen. Osseous alignment is anatomic. There is advanced bilateral hip joint osteoarthritis, especially the medial aspect of the joint, joint space narrowing and reactive stenosis. Femoral head neck junction osteophytes are present bilaterally. Lumbosacral sp inal fixation hardware noted. Soft tissues are unremarkable. Impression: Moderate to advanced bilateral hip joint osteoarthritis. Reviewed, dictated and finalized at location M. Impression: Moderate to advanced bilateral hip joint osteoarthritis.
--- NOTE | ~2023-09-26 | XR_ITS ---
Right Knee Technique: AP, lateral, and sunrise views were obtained. Clinical History: Pain COMPARISON: 06/12/2023 Findings: No fracture or dislocation is seen. Osseous alignment is anatomic. Joint spaces are preserv ed without degenerative or erosive change. Large sclerotic area is present at the medial femoral cond yle region. Evidence of remote MCL injury noted, with probable Alexus-Stieda lesion. No joint eff usion is seen. Impression: No acute abnormality evident. Stable large sclerotic area at the medial femoral condyle, possibly large bone island. Reviewed, dictated and finalized at location . Impression: No acute abnormality evident. Stable large sclerotic area at the medial femoral condyle, possibly large bone island.
[2023-09-26 00:38] VITALS: BP 159/84; PULSE 94; RESP 16; TEMP 36.4; O2SAT 98
--- NOTE | 2023-09-26 01:54 | ED.EXTPRO ---
HPI - Extremity Problem General Chief complaint: Extremity Problem,Nontraumatic <Marie Archibald PA-C - Last Filed: 09/26/23 03:02> Stated complaint: Right leg gave out <Marie Archibald PA-C - Last Filed: 09/26/23 03:02> Time Seen by Provider: 09/26/23 01:46 <Marie Archibald PA-C - Last Filed: 09/26/23 03:02> History of Present Illness HPI Narrative: 68-year-old male with history of arthritis to his hips and knees, chronic back pain, s/p inguinal hernia repair, hypertension, type 2 diabetes, multiple prior surgeries to his back presents to emergency department for right hip and knee pain since 6:00 p.m. this evening. Patient states he got out of the shower and once again in a bed when his right hip and knee began hurting. he states the pain is a sharp pain and feels like pins and needles. He states that is her spine he tries to flex his hip. He states he has chronic back pain that is unchanged from his baseline. He denies injury or trauma. Denies saddle anesthesia, urinary or bowel incontinence, urinary retention, fever, nausea or vomiting. Denies injury or trauma. States he took tramadol prior to arrival without improvement. <Marie Archibald PA-C - Last Filed: 09/26/23 03:02> Related Data Home medications: Home Medications Medication Instructions Recorded Confirmed omega-3 fatty acids 1,000 mg 1,000 mg PO DAILY 08/04/21 06/12/23 capsule cholecalciferol (vitamin D3) 50 50 mcg PO DAILY 01/10/23 06/12/23 mcg (2,000 unit) capsule elderberry fruit 350 mg capsule mg PO 01/10/23 06/12/23 multivitamin 1 tablet PO DAILY 01/10/23 06/12/23 vitamin K2 100 mcg capsule 100 mcg PO DAILY 01/10/23 06/12/23 ferrous sulfate 325 mg (65 mg 325 mg PO DAILY 04/05/23 06/12/23 iron) tablet (Feosol) <TAMIKO Cortes Last Filed: 09/26/23 03:02> Allergies/Adverse reactions: Allergies Allergy/AdvReac Type Severity Reaction Status Date / Time No Known Allergies Allergy Mild Verified 06/12/23 14:18 <Marie Archibald PA-C - Last Filed: 09/26/23 03:02> Review of Systems Review of Systems: All systems reviewed & are unremarkable except as noted in HPI and below <Marie Archibald PA-C - Last Filed: 09/26/23 03:02> [facility] Past Medical History Medical History: Medical History Acute diverticulitis Acute non-recurrent maxillary sinusitis BMI 23.0-23.9, adult BMI 24.0-24.9, adult BMI 28.0-28.9,adult Chronic kidney disease (CKD) stage G3b/A1, moderately decreased glomerular filtration rate (GFR) between 30-44 mL/min/1.73 square meter and albuminuria creatinine ratio less than 30 mg/g BUN 24 with creatinine 1.75 with GFR 42 on 01/18/2022. BUN 23, creatinine 1.63, GFR 45 on 09/09/2022. BUN 22, creatinine 1.74, GFR 42 on 02/24/2023. Chronic right hip pain severe osteoarthritis both hips on CT of the abdomen and pelvis 02/21/2021 Dermatitis Dysuria Encounter for prostate cancer screening PSA 0.82 on 01/18/2022. PSA 0.74 on 02/24/2023 Heart murmur on physical examination Hordeolum externum left eye, unspecified eyelid (~03/26/23) Insomnia Persistent gross hematuria Urinalysis normal on 01/18/2022. Persistent microalbuminuria associated with type 2 diabetes mellitus Repeat urine microalbumin ratio was normal at 24 on 01/18/2022. Microalbumin ratio normal at 17 on 02/24/2023. Polycystic kidney disease Reducible right inguinal hernia Renal insufficiency, mild BUN 24 with creatinine 1.75 with GFR 42 on 01/18/2022. BUN 23, creatinine 1.63, GFR 45 on 09/09/2022. Right hip pain Right knee pain Right thigh pain <Marie Archibald PA-C - Last Filed: 09/26/23 03:02> Surgical History Surgical History: Surgical History H/O inguinal hernia repair Right inguinal hernia repair w mesh, suture repair of umb 08/23/21 History of back surgery 2007 and 2008 Hx
[2023-09-26] MEDS: dexAMETHasone SOD PHOS INJ 10 MG/ML 1 ML VIAL IM (02:37)
[2023-09-26] MEDS: HYDROcodone/acetaminophen (*CRX) 5-325 MG TABLET 1 TAB PO (02:38)
[2023-09-26 03:21] VITALS: BP 150/82; PULSE 88; RESP 17; O2SAT 98
== END 2023-09-26 03:15 | disposition home or self-care (01) ==
PROVIDERS: Emergency Provider Physician Assistant; PCP Family Medicine
DX: M25.551 Pain in right hip (principal); M25.561 Pain in right knee; I10 Essential (primary) hypertension; E11.9 Type 2 diabetes mellitus without complications; N28.9 Disorder of kidney and ureter, unspecified; M16.0 Bilateral primary osteoarthritis of hip; M17.0 Bilateral primary osteoarthritis of knee; Q61.3 Polycystic kidney, unspecified; Z87.891 Personal history of nicotine dependence
CPT/HCPCS: 73502; 73562; 96372; 99284; A9270; J1100

== ENCOUNTER → 2024-01-29 12:35 | Outpatient (CLI) | payer MEDICARE, SELFPAY ==
--- NOTE | ~2024-01-29 | XR_ITS ---
XR shoulder LT min 2V 01/29/2024 12:59 Indication: Left shoulder pain Procedure: 2 views left shoulder Comparison: No prior studies for comparison. Findings: There is mild polyarticular osteoarthritis of the left shoulder. No fracture, subluxation o r dislocation. No soft tissue abnormality. No foreign bodies. Impression: 1: Mild polyarticular osteoarthritis of the left shoulder. Reviewed, dictated and finalized at location B. [employer] Impression: 1: Mild polyarticular osteoarthritis of the left shoulder.
--- NOTE | ~2024-01-29 | XR_ITS ---
XR cervical spine 4-5V Ordering provider: Cade Houston MD History: . cervicalgia , no injury . Comparison: None. FINDINGS: VERTEBRAL BODIES: Normal height and alignment. No visible fracture or subluxation. The dens is intact . Degenerative changes of the spine. DISK SPACES: Severe Narrowing of the disks spaces C3-C4, C4-C5, C5-C6 and C6-C7. Multilevel facet jazmin nt disease. Multilevel uncovertebral joint osteoarthritic changes. PARASPINOUS SOFT TISSUES: No prevertebral soft tissue swelling. IMPRESSION: No acute osseous abnormality cervical spine. Multilevel degenerative disc disease. Reviewed, dictated and finalized at location A. [employer]ING ANALYST
== END ==
PROVIDERS: PCP Family Medicine; Visit Provider Family Medicine
DX: M19.012 Primary osteoarthritis, left shoulder (principal); M50.31 Other cervical disc degeneration, high cervical region; M50.321 Other cervical disc degeneration at C4-C5 level; M50.322 Other cervical disc degeneration at C5-C6 level; M50.323 Other cervical disc degeneration at C6-C7 level
CPT/HCPCS: 72050; 73030

== ENCOUNTER 2024-09-17 16:30 | Emergency (ER) | payer MEDICARE, SELFPAY ==
--- NOTE | ~2024-09-17 | CT_ITS ---
EXAMINATION: CT abdomen pelvis wo con DATE: 09/17/2024 23:41 INDICATION: Right flank pain TECHNIQUE: Computed tomography (CT) of the abdomen and pelvis was performed without intravenous contr ast. Automated exposure control and iterative reconstruction technique were employed. The dose-length product was 431.16 mGy-cm. COMPARISON: CT studies dated 09/02/2023 and 02/21/2021 FINDINGS: Lung bases are clear. Heart size is normal. Atherosclerotic coronary artery calcific lesion. No peric ardial or pleural effusion. Bilateral gynecomastia. Liver, gallbladder, spleen, pancreas and bilatera l adrenal glands are normal. Stable appearance of multiple bilateral renal lesions which appear to re present a combination of simple low-attenuation cysts, cyst with peripheral calcification and multipl e lesions of greater than simple fluid attenuation most likely representing proteinaceous/hemorrhagic cysts although solid neoplasm cannot be absolutely excluded in the absence of directly comparable po st contrast imaging. No bowel obstruction. Normal appendix. Partially decompressed bladder is normal. Prostatomegaly no significant interval change in a low density likely cystic lesion at the left side of the prostate. No free intraperitoneal gas or fluid. No pathologically enlarged abdominal or pelvi c lymphadenopathy. Mild thoracolumbar levoscoliosis with severe spondylosis. Combined instrumented L4 -S1 anterior and posterior spinal fusion. Severe osteoarthritis at the bilateral hips. IMPRESSION: 1. No acute intra-abdominal/pelvic process. 2. Stable appearance of numerous bilateral renal lesions of varying sizes attenuation, some with rachel pheral rim calcification likely representing a combination of simple and complex cysts in the setting of polycystic kidney disease. Solid neoplasm could not absolutely exclude for any of the individual intermediate attenuation lesions and could consider further evaluation with pre and postcontrast MRI as clinically indicated. 3. No significant change in a 12 mm cystic-appearing lesion in the left side of the enlarged prostate . Reviewed, dictated and finalized at location A. IMPRESSION: 1. No acute intra-abdominal/pelvic process. 2. Stable appearance of numerous bilateral renal lesions of varying sizes atten uation, some with peripheral rim calcification likely representing a combinatio n of simple and complex cysts in the setting of polycystic kidney disease. Brianna d neoplasm could not absolutely exclude for any of the individual intermediate attenuation lesions and could consider further evaluation with pre and postcont rast MRI as clinically indicated. 3. No significant change in a 12 mm cystic-appearing lesion in the left side of the enlarged prostate.
[2024-09-17 16:32] VITALS: BP 187/85; PULSE 105; RESP 16; TEMP 36.8; O2SAT 100
--- OUTSIDE RECORDS SUMMARY | 2024-09-17 16:32 | XMS_ITS | Data Portability ---
Author Organization [facility], Main Office Address [address] [place] [address] Assessment Encounter Date Assessment Date Assessment LastModified by Organization Details LastModified Time 05/11/2022 05/11/2022 This note is dictated and transcribed by [employer]. Fire Protection Engineering Technician variances may occur. Despite proofreading, typographical errors may occur. Not available 05/17/2022 14:13:20 08/10/2022 08/10/2022 This note is dictated and transcribed by [employer]. Fire Protection Engineering Technician variances may occur. Despite proofreading, typographical errors may occur. Not available 08/10/2022 15:48:28 Plan of Treatment Reminders Order Date Submit Date Provider Last Modified By Organization Details Last Modified Time Details Appointments None recorded. Lab None recorded. Referral None recorded. Procedures None recorded. Surgeries None recorded. Imaging None recorded. Medication Orders diclofenac 1 % topical gel 2022 023 [id number], [address] [place], [place], [id number], 18:08:31 Patient TargetsNo targets recorded. Patient InstructionsNo instructions recorded. Reason for Referral None Reported. Problems Name Problem SNOMED Code Status Onset Date Resolution Date Notes Provider Name and Address Organization Details Recorded Time Hypertens jasmin disorder 29433153 Active 2018 Not Available [facility] 3 04:50:45 Onychomyc osis of toenails 064788193 Active 2018 Not Available [facility] 3 04:50:45 Bunion 895917427 Active 2018 Not Available [facility] 3 04:50:45 Diabetic periphera l neuropath y 309431090 Active 2018 Not Available [facility] 3 04:50:45 Diabetes mellitus 66506381 Active 2018 Not Available [facility] 3 04:50:45 Tinea pedis 9348105 Completed 201902/03/2021 Not Available [facility] 3 04:50:45 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 Procedures Surgical History Date Name Laterality Status Provider Name and Address Organization Details Recorded Time 3 Nail Debridement completed Ramon Bah DPM [address], [place], [address], [employer] 05/17/2022 14:11:12 Imaging Results None recorded. Procedure Notes None recorded. Medical Equipment None Reported. Medications Name Sig Start Date Stop Date Status Note LastModified by Organization Details LastModified Time first-magic mouthwash blm susp kit RINSE MOUTH WITH 15-30 ML UP TO THREE TIMES DAILY NEEDED FOR PAIN active Not Available Not Available No t Available cyclobenzap rine 10 mg tablet active Not Available Not Available Not Available methocarbam ol 500 mg tablet TAKE 1 TABLET BY MOUTH THREE TIMES DAILY NEEDED active Not Available Not Available No t Available terbinafine HCl 1 % topical cream APPLY TO THE AFFECTED AND SURROUNDI NG AREAS OF SKIN affected webspaces of feet BY TOPICAL ROUTE ONCE DAILY, two weeks active Not Available Not Available No t Available atorvastati n 10 mg tablet TAKE 1 TABLET BY MOUTH DAILY active Not Available Not Available No t Available azithromyci n 250 mg tablet TAKE 2 TABLETS BY MOUTH FOR 1 DAY THEN TAKE 1 TABLET BY MOUTH DAILY FOR 4 DAYS active Not Available Not Available No t Available ibuprofen 800 mg tablet 12/15 completed Not Available Not Available Not Available benzonatate 200 mg capsule 10/01 completed Not Available Not Available Not Available hydrocodone 5 mg-acetamin ophen 325 mg tablet TAKE 1 TABLET BY MOUTH EVERY 8 HOURS NEEDED FOR PAIN active Not Available Not Available No t Available prednisone 20 mg tablet TAKE 2 TABLETS BY MOUTH EVERY DAY FOR 5 DAYS active Not Available Not Available No t Available metronidazo le 250 mg tablet TK 1 T PO Q 8 H active Not Available Not Available No t Available amlodipine 5 mg tablet TAKE 1 TABLET BY MOUTH DAILY active Not Available Not Available No t Available ciprofloxac in 500 mg tablet TAKE 1 TABLET BY MOUTH EVERY 12 HOURS 12/15 completed Not Available Not Available Not Available omeprazole 40 mg capsule,del ayed release TAKE 1 CAPSULE BY MOUTH DAILY active Not Available Not Available No t Available tramadol 50 mg tablet TAKE 1 TABLET BY MOUTH EVERY 6 HOURS NEEDED FOR PAIN active Not Available Not Available No t Available quinapril 40 mg tablet TAKE 1 TABLET BY MOUTH EVERY MORNING active Not Available Not Available No t Available clobetasol 0.05 % topical gel APPLY TOPICALLY TO THE AFFECTED AREA TWICE DAILY FOR 2 WEEKS active Not Available Not Available No t Available ciclopirox 8 % topical solution APPLY TO THE AFFECTED AREA(S) BY TOPICAL ROUTE ONCE DAILY PREFERABL Y AT BEDTIME OR 8 HOURS BEFORE WASHING active Not Available Not Available No t Available meloxicam 7.5 mg tablet TAKE 1 TABLET BY MOUTH DAILY 12/15 completed Not Available Not Available Not Available amoxicillin 875 mg tablet TAKE 1 TABLET BY MOUTH TWICE DAILY UNTIL FINISHED 12/15 completed Not Available Not Available Not Available amitriptyli ne 25 mg tablet TAKE 1 TABLET BY MOUTH AT BEDTIME active Not Available Not Available No t Available methocarbam ol 750 mg tablet TAKE 1 TABLET BY MOUTH FOUR TIMES DAILY NEEDED FOR SPASMS active Not Available Not Available No t Available tamsulosin 0.4 mg capsule TAKE 1 CAPSULE BY MOUTH DAILY active Not Available Not Available No t Available hydrocodone 7.5 mg-acetamin ophen 325 mg tablet TAKE 1 TABLET BY MOUTH EVERY 6 HOURS NEEDED FOR PAIN active Not Available Not Available No t Available cephalexin 500 mg capsule active Not Available Not Available Not Available hydrochloro thiazide 12.5 mg capsule TK ONE C PO QD FOR HYPERTENS ION active Not Available Not Available No t Available gabapentin 300 mg capsule active Not Available Not Available Not Available irbesartan 150 mg tablet TAKE 1 TABLET BY MOUTH DAILY active Not Available Not Available No t Available zolpidem 10 mg tablet TAKE 1 TABLET BY MOUTH AT BEDTIME NEEDED FOR INSOMNIA active Not Available Not Available No t Available methylpredn isolone 4 mg tablets in a dose pack 10/01 completed Not Available Not Available Not Available hydrocodone 10 mg-chlorphe niramine 8 mg/5 mL oral susp extend.rel 12hr 10/01 completed Not Available Not Available Not Available lisinopril 40 mg tablet TAKE 1 TABLET BY MOUTH DAILY active Not Available Not Available No t Available cefdinir 300 mg capsule TAKE 1 CAPSULE BY MOUTH EVERY 12 HOURS active Not Available Not Available No t Available fluticasone propionate 50 mcg/actuati on nasal spray,suspe nsion SHAKE LIQUID AND USE 1 SPRAY IN EACH NOSTRIL TWICE DAILY active Not Available Not Available No t Available metformin ER 500 mg tablet,exte nded release 24 hr TAKE 2 TABLETS BY MOUTH TWICE DAILY active Not Available Not Available No t Available doxycycline hyclate 100 mg tablet TAKE 1 TABLET BY MOUTH TWICE DAILY active Not Available Not Available No t Available Senna-S 8.6 mg-50 mg tablet TK 1 T PO BID PRN active Not Available Not Available No t Available Asprin Ec Low Dose 81 mg tablet,rebecca yed release Take 1 tablet every day by oral route. 2019 active Not Available Not Available Not Avai lable chlorhexidi ne gluconate 0.12 % mouthwash active Not Available Not Available No t Available [place] 3 2021 active Not Available Not Available Not Avai lable Daily Multi-Vitam in active Not Available Not Available Not Available One Daily Essential 2021 active Not Available Not Available Not Avai lable hydrochloro thiazide 12.5 mg tablet TAKE 1 TABLET BY MOUTH DAILY active Not Available Not Available No t Available diclofenac 1 % topical gel APPLY 2 GRAMS TOPICALLY TO THE AFFECTED AREA FOUR TIMES DAILY FOR JOINT PAIN active Not Available Not Available No t Available Virtussin AC 10 mg-100 mg/5 mL oral liquid 11/12 completed Not Available Not Available Not Available [employer] (cetirizine ) 2020 active Not Available Not Available Not Avai lable Fish Oil 1,200 mg (144 mg-216 mg) capsule Take by oral route. 2019 active Not Available Not Available Not Avai lable Vitals Date Recorded Body height Heart rate Respiratory rate Oxygen saturation Oxygen saturation in Arterial blood by Pulse oximetry Systolic And Diastolic Provider Name and Address Organization Details Last Updated DateTime 3 182.88 cm 84 /min 14 /min 98 % 98 % 164/95 mm[Hg] [facility]ina [facility] [employer] [facility] 3 17:52:48 Date Recorded Body height Heart rate Systolic And Diastolic Provider Name and Address Organization Details Last Updated DateTime 06/09/2021 182.88 cm 84 /min 150/103 mm[Hg] Not Available [facility] 04/26/2022 04:44:12 Date Recorded Body height Heart rate Respiratory rate Oxygen saturation Oxygen saturation in Arterial blood by Pulse oximetry Systolic And Diastolic Provider Name and Address Organization Details Last Updated DateTime 3 182.88 cm 84 /min 14 /min 99 % 99 % 151/81 mm[Hg] [facility] [employer] [facility] 3 15:29:14 Date Recorded Body height Oxygen saturation Oxygen saturation in Arterial blood by Pulse oximetry Heart rate Systolic And Diastolic Provider Name and Address Organization Details Last Updated DateTime 2 182.88 cm 97 % 97 % 88 /min 146/95 mm[Hg] Not Available [facility] 3 04:44:13 Date Recorded Body height Heart rate Systolic And Diastolic Provider Name and Address Organization Details Last Updated DateTime 12/15/2021 182.88 cm 80 /min 153/80 mm[Hg] Not Available [facility] 04/26/2022 04:44:13 Social History None recorded. Functional Status None recorded. Mental Status None recorded. Family History Nothing Reported Notes:stroke - father Medical History No medical history recorded. Past Encounters Encounter ID Performer Location Encounter Start Date Encounter Closed Date Diagnosis/Indication Diagnosis SNOMED-CT Code Diagnosis ICD10 Code Diagnosis Note [id number] Ramon Bah DPM [facility] [place] [address] [address] 07/22/2020 00:00:00 07/22/2020 16:30:14 [id number] Ramon Bah DPM [facility] [place] [address] [place] [address] 10/28/2020 00:00:00 10/28/2020 16:49:09 [id number] Ramon Bah DPM [facility] [address] [address] 02/03/2021 00:00:00 02/03/2021 15:31:42 [id number] Ramon Bah DPM [facility] [address] [address] 06/09/2021 00:00:00 06/22/2021 08:09:56 [id number] Ramon Bah DPM [facility] [place] [address] [place] [id number] 09/15/2021 00:00:00 09/20/2021 13:23:03 [id number] Ramon Bah DPM [facility] [address] [address] 12/15/2021 00:00:00 12/15/2021 15:27:32 [id number] Ramon Bah DPM [facility] [address] [address] 05/11/2022 17:47:37 05/18/2022 11:29:14 Bunion 438944808 M21.619 Left footContin ue conservati veMonitor for wounds dailyConti nue supportive shoe gear and orthoticsf ollow-up in 3 months Acquired l eft mallet toe 4381795026 2855173 M20.5X2 2nd toecallus debrided without incidentOf floading wounds infectionM onitor for infection daily if present seek medical attention immediatel yFollow-up in 3 months Diabetic p eripheral neuropathy 061093445 E11.40 Patient educated on neuropathy , diabetes, diabetic diet, and daily foot exams. Patient is to check feet daily for new wounds, blisters, redness to prevent infection and ulceration s to the feet. Patient will return to clinic in 3 months for diabetic foot workup. Onychomyco sis of toenails 207011860 B35.1 Nails 1 through 10 were debrided with sharp mechanical debridemen t without incident. Nails were debrided and greater than 50% length and thickness where needed. [id number] Ramon Bah DPM [facility] [place] [address] [facility] [address] [place] [address] 08/10/2022 15:22:49 08/10/2022 16:43:05 Acquired left mallet toe 7429739931 3548259 M20.5X2 2nd toecallus debrided without incidentOf floading wounds infectionM onitor for infection daily if present seek medical attention immediatel yFollow-up in 3 months Dystrophia unguium 32015 009 L60.3 Nails 1 through 10 were debrided with sharp mechanical debridemen t without incident. Nails were debrided and greater than 50% length and thickness where needed. Health Concerns Section Related Observation LastModified by Organization Detai ls LastModified Time None Recorded Concern Status LastModified by Organization Details LastModified Time None Recorded Advance Directives Directive None Recorded Payers Insurance Date Sequence Insurance Name Policy Number Policy Spicer Covered Member ID Spicer Member ID Guarantor Name 11/18/2022 1 [id number] Angel Lamas [id number] Angel Lamas Notes Date Note Type Note Provider Name and Address Organization Details Recorded Time 05/11/2022 text/html . Patient is a 66-year-old male diabetic who returns the office for follow-up on diabetic foot exam and pain to his bunion. Patient denies any wounds or infection. Patient states that he has pain at the 1st metatarsal-phala ngeal joint secondary to his bunion but denies any wounds. 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 Patient denies any injury of the foot. Patient states that he does have numbness tingling and burning of the feet. Patient states that sugars are under control. Patient would like his nails cut as they are long. Patient denies any other pedal complaints. Ramon Bah DPM [address], [place], [address], [employer] [facility] 05/17/2022 14:14:26 08/10/2022 text/html . Patient is a 67-year-old male who returns the office for the mallet toe to the 2nd toe. Patient has nail deformity secondary to this condition. Patient has increased pain at the At the proximal nail and also has a left great toe that causes pressure to the medial aspect. Patient denies any redness or drainage. Patient denies any other pedal complaints. Ramon Bah DPM [address], [place], [address], [employer] 08/10/2022 16:41:43
--- OUTSIDE RECORDS SUMMARY | 2024-09-17 16:32 | XMS_ITS | Continuity of Care Document ---
Author Organization [facility] Address [address] [place] [address] [address] [place] [address] Phone Care Team Providers Care Right Of Way Cutter Name Role Phone Concepcion Malik Unavailable Unavailable Advance Directives Directive Yes / No Effective Date File Name No Information Encounters Encounter Description Practice Location Reason(s) For Visit Diagnoses Date Provider Providers Copied on Encounter [facility], [address] [place] [address] [address], [place], [place], [id number], [place] tel:[phone] [facility] No Information [address] [facility] , [address], [place], [address], [place]. tel:[phone] Family History Family Member Type Diagnosis Age At Onset No Information Payers Payer name Insurance type Covered alliance party ID Authoriza tion(s) [employer] SOI CI [id number] Social History Type Description Quantity Date Captured Comments Sex Male Smoking Status No Information Chief Complaint And Reason For Visit No Information Reason For Referral Reason For Referral No Information History Of Present Illness Encounter Date Complaint History Of Prese nt Illness No Information Functional Status Date Functional Assessmen t No Information Instructions Date Instruction Additional Infor mation No Information Assessments Type Assessment Date No Information Patient Care Teams Name Effective Dates (start - stop) Status Members No Information
--- OUTSIDE RECORDS SUMMARY | 2024-09-17 16:32 | XMS_ITS | Clinical Summary ---
Author Organization [facility] Address [address] [place] [address] Care Team Providers Care Asbestos Worker Helper Name Role Phone Cade Houston MD Primary Care Provider [phone] Allergies Active Allergy Reactions Criticality Noted Date Comments Codeine GI Upset Low 01/07/2020 Medications amitriptyline 25 MG tablet Take 1 tablet (25 mg total) by mouth nightly at bedtime. 3 018 Active amlodipine 5 MG tablet Take 1 tablet (5 mg total) by mouth daily. Active hydrochlorothiazide 12.5 MG capsule HAS NOT TAKEN THIS IN 2 OR 3 WEEKS Active fluticasone propionate 50 MCG/ACT nasal spray 1 spray by Nasal route 2 (two) times daily. Active Cholecalciferol (VITAMIN D3) 2000 units Cap Take 2,000 Units by mouth daily. Active metFORMIN 500 MG 24 hr tablet Take 2 tablets (1,000 mg total) by mouth 2 (two) times a day. Active omeprazole 40 MG capsule Take 1 capsule (40 mg total) by mouth daily. Active zolpidem 10 MG tablet Take 1 tablet (10 mg total) by mouth nightly as needed. Active atorvastatin 10 MG tablet Take 1 tablet (10 mg total) by mouth daily. Active NON FORMULARY BOMBA NATURAL ENHANCEMENT DAILY Active NON FORMULARY MULTICOLLAGEN 1 SCOOP DAILY Active NON FORMULARY BLACK SEED 1 DAILY 100 VEGETARIAN CAPSULES Active [place]-3 Fatty Acids (FISH OIL) 1200 MG Cap Fish Oil 1,200 mg (144 mg-216 mg) capsule Take by oral route. 020 Active ferrous sulfate EC 324 (65 Fe) MG tablet Take 1 tablet (324 mg total) by mouth daily with breakfast. Active irbesartan (AVAPRO) 150 MG tablet Take 1 tablet (150 mg total) by mouth daily. Active tamsulosin (FLOMAX) 0.4 MG Cap Take 1 capsule (0.4 mg total) by mouth daily. Active traMADol (ULTRAM) 50 MG tablet Take 1 tablet (50 mg total) by mouth every 6 (six) hours as needed for Pain. Active ELDERBERRY OR Active multi vitamin/minerals (THERA-M ENHANCED) tablet Take 1 tablet by mouth daily. Active Menaquinone-7 (K2 OR) Active Misc Natural Products (BEET ROOT OR) Activ e diclofenac sodium (VOLTAREN) 1 % gelIndications:Capsuli tis of metatarsophalangeal (MTP) joint of right foot,Capsulitis of metatarsophalangeal (MTP) joint of left foot Apply 2 g topically 4 (four) times daily. 500 g 3 024 Active Active Problems Problem Noted Date Diagnosed Date Low back pain, unspecified b ack pain laterality, unspecified chronicity, unspecified whether sciatica present 08/14/2024 Foraminal stenosis of cervical region 12/15/2020 Tear of left acetabular labrum, initial encounte r 10/13/2020 Left groin pain 10/13/2020 Numbness of right anterior thigh 07/08/2020 Foraminal stenosis of lumbar region 07/08/2020 Left hip pain 07/08/2020 Myofascial pain dysfunction syndrome 03/05/2020 Incidental durotomy 01/15/2020 History of lumbar laminectomy 01/13/2020 Lumbar radiculopathy 01/13/2020 Spinal stenosis of lumbar re gion with neurogenic claudication 01/13/2020 Sacroiliitis 01/13/2020 Dystrophia unguium 11/13/2019 Tinea pedis 09/02/2019 Acute left-sided low back pain without sciatica 08/15/2019 Left leg pain 08/15/2019 History of lumbar fusion 08/15/2019 Bunion 10/01/2018 Diabetic peripheral neuropathy ([facility]) 10/01/2018 Degeneration of intervertebral disc of lumbar re gion 07/03/2016 Thumb pain 09/01/2015 Triggering of digit 12/14/2014 Diabetes mellitus ([facility]) 2012 Hypertension 2012 Induratio penis plastica 12/17/2009 Resolved Problems Problem Noted Date Diagnosed Date Resolved Date Encounter for preventive health examination 12/07/2014 10/18/2020 Encounters Date Type Department Care Team Description 08/14/2024 3:00 PM CDT Office Visit [facility] Multispecialty Care - [address], [address] [place] [address] Corrine Hurd APRN Follow Up (Clinical F/U with PT) 08/14/2024 Travel 07/10/2024 10:26 AM CDT - 07/10/2024 11:59 PM CDT Hospital Encounter [facility] [place] [address] Corrine Hurd, Sonja Mendez, PT Discharge Disposition: Home or Self Care (Routine Discharge) 07/10/2024 Travel 07/08/2024 12:55 PM CDT - 07/08/2024 11:59 PM CDT Hospital Encounter [facility] [place] [address] Corrine Hurd, Sonja Mendez, PT Discharge Disposition: Home or Self Care (Routine Discharge) 07/08/2024 Travel 07/03/2024 12:38 PM CDT - 07/03/2024 11:59 PM CDT Hospital Encounter [facility] [place] [address] Corrine Hurd, Marly Correia, MAGNETIC PROSPECTING SUPERVISOR Discharge Disposition: Home or Self Care (Routine Discharge) 07/03/2024 Travel 07/01/2024 1:00 PM CDT - 07/01/2024 11:59 PM CDT Hospital Encounter [facility] [place] [address] Corrine Hurd, Sonja Mendez, PT Discharge Disposition: Home or Self Care (Routine Discharge) 07/01/2024 Travel 06/19/2024 12:35 PM CDT - 06/19/2024 11:59 PM CDT Hospital Encounter [facility] [place] [address] Corrine Hurd, Marly Correia, MAGNETIC PROSPECTING SUPERVISOR Discharge Disposition: Home or Self Care (Routine Discharge) 06/19/2024 Travel from Last 3 Months Immunizations Immunization Administration Dates Next Due PFIZER COVID-19 (ORIGINAL FO RMULATION, PURPLE CAP) mRNA, LNP-S, PF, 30 MCG/0.3 ML DOSE 04/26/2020,04/05/2020 Family History Medical History Relation Comments No Known Problems Brother No Known Problems Daughter 1 No Known Problems Daughter 2 Heart Attack Father Hypertension Father Stroke Father Diabetes Mother No Known Problems Sister No Known Problems Son 1 No Known Problems Son 2 No Known Problems Son 3 Relation Status Comments Brother Daughter 1 Alive Daughter 2 Alive Father (Age 60s) of heart problems, complications from a stroke Mother (Age 50s) IDDM, of diabetes complications Sister Son 1 Alive Son 2 Alive Son 3 Alive Social History Tobacco Use Types Packs/Day Years Used Date Smoking Tobacco: Former Cigarettes 0.5 30 1 960 - 1989 Passive Smoke Exposure: Past Smokeless Tobacco: Never Tobacco Cessation:Counseling Given: Yes Alcohol Use Standard Drinks/Week Comments Yes 0 (1 standard drink = 0.6 oz pur e alcohol) less than 1 drink a month RARE AUDIT-C Answer Date Recorded Frequency of Alcohol Consumption Never 08/15/2019 Average Number of Drinks Not on file 020 Frequency of Binge Drinking Not on file 07/27 PHQ-2 Answer Date Recorded Patient Health Questionnaire-2 Score 0 05/15/2024 Sex and Gender Information Value Date Recorded Sex Assigned at Male 04/02/2024 12:38 PM LAST SORTER Legal Sex Male 5:04 PM CDT Gender Identity Not on file Sexual Orientation Not on file Last Filed Vital Signs Vital Sign Reading Time Taken Comments Blood Pressure 132/86 08/14/2024 2:53 PM CDT Pulse 94 08/14/2024 2:53 PM CDT Temperature 37.8 C (100 F) 08/14/2024 2:53 PM CDT Respiratory Rate 18 08/14/2024 2:53 PM CDT Oxygen Saturation 100% 08/14/2024 2:53 PM CDT Inhaled Oxygen Concentration - - Weight 74.5 kg (164 lb 3.2 oz) 08/14/2024 2:53 P M CDT Height 182.9 cm (6') 08/14/2024 2:53 PM CDT Body Mass Index 22.27 08/14/2024 2:53 PM CDT Plan of Treatment Health Maintenance Due Date Last Done Comments ASCVD LDL 1953 Colorectal Cancer Screening Colonoscopy (10 Years) 1953 Kidney Health Evaluation 1953 Lipid Panel 1953 Diabetes: Retinopathy Eye Exam 06/06/1971 Hepatitis C 06/06/1971 DTaP, Tdap and Td Vaccines ( 1 - Tdap) 1972 Pneumococcal Vaccine: 50+ Years (1 of 2 - PCV) 1972 Zoster Vaccines (1 of 2) 06/06/2003 AAA SCREENING 2018 Annual Medicare Wellness Visit 2018 COVID-19 Vaccine (3 - 2023-2 5 season) 2023 04/26/2020, 04/05/2020 Hemoglobin A1C 04/21/2024 10/20/2023 RSV Immunization or 60+ Years (1 - 1-dose 75+ series) 2028 PHQ-2 (Physician [place]) Completed 05/15/2024 Meningococcal B Vaccine Aged Out No l onger eligible based on patient's age to complete this topic Meningococcal Vaccine Aged Out No krystyna bernabe eligible based on patient's age to complete this topic RSV Immunizations Under 20 Months Aged Out No longer eligible b ased on patient's age to complete this topic Medical Devices Implanted Type Area Nutrition Consultant Device Identifier Shelf Expiration Date Model / Serial / Lot Patch Dural 1x1in Duramatrix-Onla y Plus Collagen Regeneration Membrane Sterile - [id number] Implanted:Qty: 1 on 01/13/2020 by Shankar Michelle MD at [facility] Dura N/A: Spine Lumbar STEFANY CRANIOMAXILLOFACIAL - DIV STEFANY CO 09/25/2021 [id number] / / [id number] Procedures Procedure Name Priority Date/Time Associated Diagnosis Comments HEMOGLOBIN, GLYCOSYLATED Routine 10/20/2023 from Last 3 Months or Most Recently Relevant to Health Maintenance Results * HEMOGLOBIN, GLYCOSYLATED (10/20/2023) HGB A1C 8.5 % 10/20/2023 [facility] LABORATORY Final Res ult from Last 3 Months or Most Recently Relevant to Health Maintenance Insurance [employer] Advance Directives * Full Code (Latest Code Status on File) Date Activated Date Inactivated Comments 01/13/2020 7:27 PM 01/15/2020 2:48 PM Care Teams Asbestos Worker Helper Relationship Specialty Start Date End Date Cade Houston MD [address] [place] [address] [address] [place] [address] PCP - General FAMILY PRACTICE 01/23/23
[2024-09-17 20:10] VITALS: BP 169/89; PULSE 87; RESP 18; TEMP 36.7; O2SAT 100
--- OUTSIDE RECORDS SUMMARY | 2024-09-17 22:20 | XMS_ITS | Continuity of Care Document ---
Author Organization [facility] Address [address] [place] [address] [address] [place] [address] Phone Care Team Providers Care Senior Net Web Developer Name Role Phone Danica Gaston PT Unavailable Unavailable Procedures Procedure Date Progress Note Therapeutic Exercise Therapeutic Activities Neuromuscular Re-Ed Therapeutic Exercise Therapeutic Activities Neuromuscular Re-Ed Manual Therapy Therapeutic Exercise Therapeutic Activities Neuromuscular Re-Ed Manual Therapy Therapeutic Exercise Therapeutic Activities Neuromuscular Re-Ed Manual Therapy Hot or Cold Pack Therapeutic Exercise Therapeutic Activities Neuromuscular Re-Ed Manual Therapy Therapeutic Exercise Therapeutic Activities Neuromuscular Re-Ed Manual Therapy Hot or Cold Pack Therapeutic Exercise Therapeutic Activities Neuromuscular Re-Ed Manual Therapy Hot or Cold Pack Therapeutic Exercise Therapeutic Activities Neuromuscular Re-Ed Therapeutic Exercise Therapeutic Activities Neuromuscular Re-Ed Manual Therapy Hot or Cold Pack Therapeutic Exercise Therapeutic Activities Neuromuscular Re-Ed Manual Therapy Hot or Cold Pack PT Re-evaluation Therapeutic Exercise Therapeutic Activities Manual Therapy Therapeutic Exercise Therapeutic Activities Neuromuscular Re-Ed Manual Therapy Hot or Cold Pack Progress Note Therapeutic Exercise Therapeutic Activities Neuromuscular Re-Ed Manual Therapy Hot or Cold Pack Therapeutic Exercise Therapeutic Activities Neuromuscular Re-Ed Manual Therapy Hot or Cold Pack Therapeutic Exercise Therapeutic Activities Manual Therapy Hot or Cold Pack PT Evaluation Moderate Complexity Therapeutic Exercise Neuromuscular Re-Ed Manual Therapy Hot or Cold Pack Advance Directives Directive Yes / No Effective Date File Name No Information Encounters Encounter Description Practice Location Reason(s) For Visit Diagnoses Date Provider Providers [facility]ied [facility] [employer], [place], [place], [id number], tel:[phone] [facility] No Information 9 Marilin Mishra. . [facility] [employer], [place], [place], [id number], tel:[phone] [facility] Low back painCervicalgiaOth symptoms and signs involving the musculoskeletal systemRadiculopath y, site unspecifiedOther muscle spasmOther specified dorsopathies, lumbar regionCivilian activity done for income or payPain in left hand 9 Marilin Mishra. . [facility] [employer] [address], [place], [place], [id number], tel:[phone] [facility] Low back painCervicalgiaOth symptoms and signs involving the musculoskeletal systemRadiculopath y, site unspecifiedOther muscle spasmOther specified dorsopathies, lumbar regionCivilian activity done for income or payPain in left hand 0 9 Marilin Smitha. . [facility], [place], [place], [id number], [place] tel:[phone] [facility] Low back painCervicalgiaOth symptoms and signs involving the musculoskeletal systemRadiculopath y, site unspecifiedOther muscle spasmOther specified dorsopathies, lumbar regionCivilian activity done for income or payPain in left hand 9 Walker Grady. . [facility], [place], [place], [id number], [place] tel:[phone] [facility] Low back painCervicalgiaOth symptoms and signs involving the musculoskeletal systemRadiculopath y, site unspecifiedOther muscle spasmOther specified dorsopathies, lumbar regionCivilian activity done for income or payPain in left hand 9 Walker Grady. . [facility], [place], [place], [id number], [place] tel:[phone] [facility] Low back painCervicalgiaOth symptoms and signs involving the musculoskeletal systemRadiculopath y, site unspecifiedOther muscle spasmOther specified dorsopathies, lumbar regionCivilian activity done for income or payPain in left hand 9 Marilin Smitha. . [facility], [place], [place], [address], [place] tel:[phone] [facility] Low back painCervicalgiaOth symptoms and signs involving the musculoskeletal systemRadiculopath y, site unspecifiedOther muscle spasmOther specified dorsopathies, lumbar regionCivilian activity done for income or payPain in left hand 9 Walker Grady. . [facility], [place], [place], [id number], [place] tel:[phone] [facility] Low back painCervicalgiaOth symptoms and signs involving the musculoskeletal systemRadiculopath y, site unspecifiedOther muscle spasmOther specified dorsopathies, lumbar regionCivilian activity done for income or payPain in left hand 0- 9 Walker Grady. . [facility], [place], [place], [id number], tel:[phone] [facility] Low back painCervicalgiaOth symptoms and signs involving the musculoskeletal systemRadiculopath y, site unspecifiedOther muscle spasmOther specified dorsopathies, lumbar regionCivilian activity done for income or payPain in left hand 6- 9 Marilin Smitha. . [facility], [place], [place], [address], tel:[phone] [facility] Low back painCervicalgiaOth symptoms and signs involving the musculoskeletal systemRadiculopath y, site unspecifiedOther muscle spasmOther specified dorsopathies, lumbar regionCivilian activity done for income or payPain in left hand - 9 Walker Grady. . [facility], [place], [place], [address], [place] tel:[phone] [facility] Low back painCervicalgiaOth symptoms and signs involving the musculoskeletal systemRadiculopath y, site unspecifiedOther muscle spasmOther specified dorsopathies, lumbar regionCivilian activity done for income or payPain in left hand 3- 9 Walker Grady. . [facility], [place], [place], [address], [place] tel:[phone] [facility] Low back painCervicalgiaOth symptoms and signs involving the musculoskeletal systemRadiculopath y, site unspecifiedOther muscle spasmOther specified dorsopathies, lumbar regionCivilian activity done for income or payPain in left hand 0 9- 9 Marilin Danica. . [facility], [place], [place], [address], tel:[phone] [facility] Low back painCervicalgiaOth symptoms and signs involving the musculoskeletal systemRadiculopath y, site unspecifiedOther muscle spasmOther specified dorsopathies, lumbar regionCivilian activity done for income or payPain in left hand 9 Walker Grady. . [facility], [place], [place], [address], tel:[phone] [facility] Low back painCervicalgiaOth symptoms and signs involving the musculoskeletal systemRadiculopath y, site unspecifiedOther muscle spasmOther specified dorsopathies, lumbar regionCivilian activity done for income or pay 9 Marilin Mishra. . [facility], [place], [place], [address], tel:[phone] [facility] Low back painCervicalgiaOth symptoms and signs involving the musculoskeletal systemRadiculopath y, site unspecifiedOther muscle spasmOther specified dorsopathies, lumbar regionCivilian activity done for income or pay 9 Marilin Mishra. . [facility], [place], [place], [address], tel:[phone] [facility] Low back painCervicalgiaOth symptoms and signs involving the musculoskeletal systemRadiculopath y, site unspecifiedOther muscle spasmOther specified dorsopathies, lumbar regionCivilian activity done for income or pay 3 9 Marilin Mishra. . [facility], [place], [place], [address], tel:[phone] [facility] Low back painCervicalgiaOth symptoms and signs involving the musculoskeletal systemRadiculopath y, site unspecifiedOther muscle spasmOther specified dorsopathies, lumbar regionCivilian activity done for income or pay 2 - 9 Marilin Ashton . Family History Family Member Type Diagnosis Age At Onset No Information Payers Payer name Insurance type Covered libertarian ID Authoriza timarta(s) [facility] [id number] Social History Type Description Quantity Date Captured [...]
--- OUTSIDE RECORDS SUMMARY | 2024-09-17 22:20 | XMS_ITS | Continuity of Care Document ---
Author Organization [facility] Address [address] [place] [address] [address] [place] [address] Phone Care Team Providers Care Plane Tender Name Role Phone Concepcion Malik Unavailable Unavailable Advance Directives Directive Yes / No Effective Date File Name No Information Encounters Encounter Description Practice Location Reason(s) For Visit Diagnoses Date Provider Providers Copied on Encounter [facility], [id number] [place] [address] [address], [place], [place], [id number], [place] tel:[phone] SEC [facility] No Information [address] Javier. [address] [facility] , [address], [place], [address], [place]. tel:[phone] Family History Family Member Type Diagnosis Age At Onset No Information Payers Payer name Insurance type Covered libertarian ID Authoriza tion(s) [employer] SOI CI [id number] Social History Type Description Quantity Date Captured [...]
--- OUTSIDE RECORDS SUMMARY | 2024-09-17 22:20 | XMS_ITS | Clinical Summary ---
Author Organization [facility] Address [address] [place] [address] Care Team Providers Care Cottage Master Name Role Phone Cade Houston MD Primary Care Provider [phone] Allergies Active Allergy Reactions Criticality Noted Date [...] SEED 1 DAILY 100 VEGETARIAN CAPSULES Active [place]-3 Fatty Acids (FISH OIL) 1200 MG Cap [...] fusion 08/15/2019 Bunion 10/01/2018 Diabetic peripheral neuropathy ([facility]) 10/01/2018 Degeneration of intervertebral disc of lumbar re gion 07/03/2016 Thumb pain 09/01/2015 Triggering of digit 12/14/2014 Diabetes mellitus ([facility]) 2012 Hypertension 2012 Induratio penis plastica 12/17/2009 Resolved Problems Problem Noted Date Diagnosed Date Resolved Date Encounter for preventive health examination 12/07/2014 10/18/2020 Encounters Date Type Department Care Team Description 08/14/2024 3:00 PM CDT Office Visit [facility] Medical Group Multispecialty Care - [address], [address] [place] [address] Corrine Hudr APRN Follow Up (Clinical F/U with PT) 08/14/2024 Travel 07/10/2024 10:26 AM CDT - 07/10/2024 11:59 PM CDT Hospital Encounter [facility] [place] [address] Corrine Hurd, Sonja Mendez, PT Discharge Disposition: Home or Self Care (Routine Discharge) 07/10/2024 Travel 07/08/2024 12:55 PM CDT - 07/08/2024 11:59 PM CDT Hospital Encounter [facility] [place] [address] Corrine Hurd, Sonja Mendez, PT Discharge Disposition: Home or Self Care (Routine Discharge) 07/08/2024 Travel 07/03/2024 12:38 PM CDT - 07/03/2024 11:59 PM CDT Hospital Encounter [facility] [place] [address] Corrine Hurd, Marly Correia, SECURITY PROFESSIONAL Discharge Disposition: Home or Self Care (Routine Discharge) 07/03/2024 Travel 07/01/2024 1:00 PM CDT - 07/01/2024 11:59 PM CDT Hospital Encounter [facility] [place] [address] Corrine Hurd, Sonja Mendez, PT Discharge Disposition: Home or Self Care (Routine Discharge) 07/01/2024 Travel 06/19/2024 12:35 PM CDT - 06/19/2024 11:59 PM CDT Hospital Encounter [facility] [place] [address] Corrine Hurd, Marly Correia, SECURITY PROFESSIONAL Discharge Disposition: Home or Self Care (Routine [...] Sex Assigned at Male 04/02/2024 12:38 PM NURSE PRACTICAL Legal Sex Male 5:04 PM CDT Gender [...] - 1-dose 75+ series) 2028 PHQ-2 (Physician [place]) Completed 05/15/2024 Meningococcal B Vaccine Aged Out No l onger eligible based on patient's age to complete this topic Meningococcal Vaccine Aged Out No krystyna bernabe eligible based on patient's age to complete this topic RSV Immunizations Under 20 Months Aged Out No longer eligible b ased on patient's age to complete this topic Medical Devices Implanted Type Area Equipment Validation Specialist Device Identifier Shelf Expiration Date Model / Serial / Lot Patch Dural 1x1in Duramatrix-Onla y Plus Collagen Regeneration Membrane Sterile - [id number] Implanted:Qty: 1 on 01/13/2020 by Shankar Michelle MD at [facility] Dura N/A: Spine Lumbar STEFANY CRANIOMAXILLOFACIAL - DIV STEFANY CO 09/25/2021 [id number] / / [id number] Procedures Procedure Name Priority Date/Time Associated [...] 7:27 PM 01/15/2020 2:48 PM Care Teams Cottage Master Relationship Specialty Start Date End Date Cade Houston MD [address] [place] [address] [address] [place] [address] PCP - General FAMILY PRACTICE 01/23/23
--- NOTE | 2024-09-17 23:28 | ED_ITS ---
HPI - Back Pain/Injury General Chief Complaint: Back Pain/Injury Stated Complaint: back pain Time Seen by Provider: 09/17/24 22:02 History of Present Illness HPI Narrative: 69-year-old male with a history of polycystic kidney disease, hypertension, hyperlipidemia, type 2 diabetes, chronic back pain with right-sided sciatica presents to the emergency department for right-sided back pain for about 1 week. Patient denies injury or trauma. He does note that he has chronic back pain and has had several back surgeries including surgeries in 2007, 2008 and 2019, however states this pain feels different. He states normally his back pain is diffusely throughout the lower back and does normally present to the right flank. He says PCP for his back pain 5 days ago and was started on prednisone 40 mg daily for 5 days which he states he took with improvement. He states once he finished a course of prednisone his pain returned which prompted him to come to the ED. He states the pain feels like someone is ?stabbing? him in the back, worse with any movement. Denies radicular symptoms, dysuria, hematuria, history of kidney stones, abdominal pain, nausea vomiting, fever, IV drug use. Related Data Home Medications ?Medication ?Instructions ?Recorded ?Confirmed ?Last Taken ?Type omega-3 fatty acids 1,000 mg 1,000 mg PO DAILY 08/04/21 09/10/24 Unknown History capsule cholecalciferol (vitamin D3) 50 50 mcg PO DAILY 01/10/23 09/10/24 Unknown History mcg (2,000 unit) capsule elderberry fruit 350 mg capsule mg PO 01/10/23 09/10/24 Unknown History multivitamin 1 tablet PO DAILY 01/10/23 09/10/24 Unknown History vitamin K2 100 mcg capsule 100 mcg PO DAILY 01/10/23 09/10/24 Unknown History ferrous sulfate 325 mg (65 mg 325 mg PO DAILY 04/05/23 09/10/24 Unknown History iron) tablet (Feosol) lidocaine 4 % topical patch 1 patch topical DAILY PRN pain 09/10/24 09/10/24 Unknown History Allergies Allergy/AdvReac Type Severity Reaction Status Date / Time No Known Allergies Allergy Mild Verified 07/17/24 07:23 Review of Systems 2 Review of Systems: All systems reviewed & are unremarkable except as noted in HPI and below PMFSH Past Medical History Medical History Insomnia Acute right-sided thoracic back pain (~08/28/24) Constipation At moderate risk for fall Umbilical hernia Exposure to influenza BMI 22.0-22.9, adult Chronic pain in left shoulder X-ray of the left shoulder on 01/29/2024 reveals mild osteoarthritis. Chronic low back pain with right-sided sciatica Hordeolum externum left eye, unspecified eyelid (~03/26/23) Chronic kidney disease (CKD) stage G3b/A1, moderately decreased glomerular filtration rate (GFR) between 30-44 mL/min/1.73 square meter and albuminuria creatinine ratio less than 30 mg/g BUN 24 with creatinine 1.75 with GFR 42 on 01/18/2022. BUN 23, creatinine 1.63, GFR 45 on 09/09/2022. BUN 22, creatinine 1.74, GFR 42 on 02/24/2023. BUN 18, creatinine 1.58 with GFR 47 on 10/20/2023. BUN 32, creatinine 1.82 with GFR 39 on 03/31/2024. Right knee pain Right hip pain BMI 23.0-23.9, adult Chronic right hip pain severe osteoarthritis both hips on CT of the abdomen and pelvis 02/21/2021 Right thigh pain Reducible right inguinal hernia Persistent gross hematuria Urinalysis normal on 01/18/2022. BMI 24.0-24.9, adult Polycystic kidney disease Dysuria BMI 28.0-28.9,adult Persistent microalbuminuria associated with type 2 diabetes mellitus Repeat urine microalbumin ratio was normal at 24 on 01/18/2022. Microalbumin ratio normal at 17 on 02/24/2023. Dermatitis Encounter for prostate cancer screening PSA 0.82 on 01/18/2022. PSA 0.74 on 02/24/2023. Acute diverticulitis Acute non-recurrent maxillary sinusitis Heart murmur on physical examination Renal insufficiency, mild BUN 24 with creatinine 1.75 with GFR 42 on 01/18/2022. BUN 23, creatinine 1.63, GFR 45 on 09/09/2022. Surgical History Surgical History H/O inguinal hernia repair Right inguinal hernia repair w mesh, suture repair of umb 08/23/21 Hx of laminectomy 01/02/2020- [facility] History of back surgery 2007 and 2008 Family History Family History Father Family history of cardiovascular disease Hypertension Cerebrovascular accident Mother Diabetes mellitus Hypertension Social History Social History Smoking packs per day: 0.5 Smoking cigarettes per day: 10.0 Years smoked: 9 Smoking pack-years: 4.50 Smoking status: Former smoker Tobacco type: cigarettes Second hand tobacco smoke exposure: No Smoking end date: 02/26/89 Additional smoking assessment comments: approx. smoked for 5-6 years Alcohol intake: current Alcohol use details: STATES VERY RARELY - MAYBE 6 BEERS/YEAR Substance use: never Substance use type: does not use Do You Feel Safe in your Home?: Yes Lack of Transportation: No Lack of Food: Never True Current Housing: I Have Housing Concerned About Future Housing: No Difficulty Paying Gas/Electric Bills: No Difficulty Paying for Meds: No Currently Unemployed: No Education: High School Diploma/GED Difficulty w/ Childcare or Family Care: No Living arrangements: with family Occupation/Education: retired Additional occupation/education comments: [employer] Gender identity (if verbalized by the patient): Male Spiritual care concerns: No Exam 2 Narrative: GENERAL: Well-appearing, well-nourished, and in no acute distress. HEAD: Normocephalic, atraumatic. EYES: EOMI. ENT: Nares clear, no rhinorrhea or epistaxis. Mucous membranes moist. NECK: Supple. CHEST: Clear to auscultation. No respiratory distress. HEART: Regular rate and rhythm. No murmur heard. Normal peripheral pulses. ABDOMEN: Soft, nontender, nondistended, normal active bowel sounds. BACK: No midline thoracolumbar spinous tenderness, crepitus, step-offs or deformities. Tenderness to the right paraspinous muscles and over the right CVA region on palpation with no overlying skin changes. Well-healed surgical scars over the thoracic lumbar vertebrae with no wound dehiscence, erythema, induration or fluctuation EXTREMITIES: Normal range of motion. No edema. SKIN: Warm, dry, no rash. NEURO: No focal deficits. Alert and oriented x3. No saddle anesthesia. Strength 5/5 in BLE. Sensation intact throughout. Patient ambulatory with a steady gait Course Vital Signs Vital signs: Vital Signs Temperature 98.2 F 09/17/24 16:32 Pulse Rate 105 H 09/17/24 16:32 Respiratory Rate 16 09/17/24 16:32 Blood Pressure 187/85 H 09/17/24 16:32 Pulse Oximetry 100 09/17/24 16:32 Temperature 98.0 F 09/17/24 20:10 Pulse Rate 87 09/17/24 20:10 Respiratory Rate 18 09/17/24 20:10 Blood Pressure 169/89 H 09/17/24 20:10 Pulse Oximetry 100 09/17/24 20:10 MDM - Back Pain/Injury MDM Narrative Medical decision making narrative: 69-year-old male with history of chronic back pain presents to emergency department for right-sided back/flank pain for the past week. See HPI for further history. Triage vitals with elevated blood pressure mild tachycardia 105 which has since resolved. Patient is afebrile and nontoxic appearing. Exam is notable for tenderness to the right paraspinous muscles and right CVA region. He is neurovascularly intact, no signs of significant cord compression or cauda equina. No evidence of infection. Discussed possibility of acute on chronic back pain, however patient verbalizes this is not his typical back pain. Therefore will obtain lab work, UA and CT abdomen pelvis without contrast to out of for possible etiologies such as ureterolithiasis, UTI and other. Lab work shows no leukocytosis, hemoglobin is 11.4 which is patient's baseline. Chemistries with baseline creatinine of 1.76 consistent with patient's known chronic kidney disease. Urinalysis is unremarkable without UTI or hematuria. CT abdomen pelvis IMPRESSION: 1. No acute intra-abdominal/pelvic process. 2. Stable appearance of numerous bilateral renal lesions of varying sizes attenuation, some with peripheral rim calcification likely representing a combination of simple and complex cysts in the setting of polycystic kidney disease. Solid neoplasm could not absolutely exclude for any of the individual intermediate attenuation lesions and could consider further evaluation with pre and postcontrast MRI as clinically indicated. 3. No significant change in a 12 mm cystic-appearing lesion in the left side of the enlarged prostate. Patient was updated on results. He was given morphine and lidocaine patch with improvement and pain. On re-evaluation he is now stating he is having radicular symptoms down his right leg. Suspect his presentation is acute on chronic right-sided lumbar radiculopathy. Will send the patient home on Tylenol Flexeril and lidocaine patches given he was recently on steroid burst. Advised follow-up with his PCP. Additionally advised follow-up with his urologist given CT findings. Discussed strict ED return precautions. He is agreeable with the plan verbalized understanding. Discharged in stable condition. Lab Data 09/17/24 23:53 09/17/24 23:53 Labs: Lab Results 09/17/24 Range/Units 23:53 WBC 7.9 (4.5-10.0) K/mm3 RBC 5.37 (4.6-6.20) M/mm3 Hgb 11.4 L (14.0-18.0) g/dL Hct 38.3 L (42.0-52.0) % MCV 71.3 L (80-100) fl MCH 21.2 L (26-34) pg MCHC 29.8 L (32-36) g/dl RDW 16.7 H (11.5-14.5) % Plt Count 208 (150-375) k/mm3 MPV 11.6 H (7.4-10.4) fl Immature Gran % (Auto) 0.4 (0-0.5) % Neut % (Auto) 49.8 (45.5-73.1) % Lymph % (Auto) 41.4 (18.3-44.2) % Harlan % (Auto) 6.6 (2.6-8.5) % Eos % (Auto) 1.3 (0-4.4) % Baso % (Auto) 0.5 (0.2-1.2) % Lymph # (Auto) 3.27 H (0.9-3.2) K/mm3 Harlan # (Auto) 0.5 (0.1-0.6) K/mm3 Eos # (Auto) 0.1 (0-0.3) K/mm3 Baso # (Auto) 0.0 (0.0-0.1) K/mm3 Abs Immat Gran (auto) 0.03 (0.00-0.031) K/mm3 Absolute Neuts (auto) 3.9 (1.3-6.7) K/mm3 Absolute Nucleated RBC 0.000 (0.0-0.012) K/mm3 Band Neutrophils % 0 (0-6) % Nucleated RBC % 0.0 (0.0-0.2) % Platelet Estimate Adequate (Adequate) % Immature Plt Fraction 6.7 (0.9-11.2) % Anisocytosis 1+ Ovalocytes 1+ Schistocytes None seen Sodium 137 (137-145) mmol/L Potassium 4.2 (3.4-5.0) mmol/L Chloride 103 (98-107) mmol/L Carbon Dioxide 25 (22-30) mmol/L Anion Gap 9 (4-12) mmol/L BUN 22 H D (9-20) mg/dL Creatinine 1.76 H (0.7-1.3) mg/dL Estim Creat Clear Calc 38 ml/min Estimated GFR 38 L (59 - ) Glucose 145 H (65-110) mg/dL Calcium 9.6 (8.4-10.2) mg/dL Total Bilirubin 0.2 (0.2-1.3) mg/dL AST 24 (17-59) U/L ALT 19 (6-50) U/L Alkaline Phosphatase 83 (38-126) U/L Total Protein 8.0 (6.3-8.2) g/dL Albumin 4.2 (3.5-5.1) g/dL Urine Color Yellow (Yellow) Urine Appearance Clear (Clear) Urine pH 6.5 (5.0-9.0) Ur Specific [place] 1.015 (1.001-1.035) Urine Protein Trace (Negative) mg/dL Urine Glucose (UA) Negative (Negative) mg/dL Urine Ketones Negative (Negative) mg/dL Ur Blood (Man) Negative (Negative) Urine Nitrate Negative (Negative) Urine Bilirubin Negative (Negative) Urine Urobilinogen 0.2 (<2.0) mg/dL Leukocyte Esterase Rfl Negative (Negative) MIN/UL Urine RBC 0-2 (0-2) /hpf Urine WBC 0-5 (0-3) /hpf Ur Squamous Epith Cells None seen (Few) /hpf Urine Bacteria None seen /hpf Urine Casts 0-2 Discharge Plan Discharge Clinical Impression: Acute right flank pain, Cyst of prostate Patient Disposition: Home Condition: Stable Instructions: Antibiotic Form, Acute Low Back Pain (ED) Additional Instructions: Please take the Tylenol, muscle relaxers and lidocaine patches as directed and follow-up closely with your primary care provider. Your also found to have findings consistent with polycystic kidney disease which is known to you. The radiologist advises to consider further evaluation with pre and post-contrast MRI to exclude the possibility of solid neoplasm. Please follow-up with your urologist regarding this. Additionally were found have a 12 mm cystic-appearing lesion to the left side of your enlarged prostate. You can also follow up with Dr. Pickens regarding this. Return to the emergency department if you develop numbness in your groin, you lose control of her bowel or bladder, you develop a fever, significantly worsening pain, or other concerning symptoms. Patient Language: Russian Prescriptions: New acetaminophen 500 mg capsule 500 mg PO Q6H PRN (Reason: pain) Qty: 14 0RF lidocaine 5 % adhesive patch,medicated 1 patch topical DAILY Qty: 15 0RF Rx Instructions: leave on most painful area for up to 12 hrs. do not use more than 1 patch in a 24-hour period. cyclobenzaprine 5 mg tablet 5 mg PO TID PRN (Reason: muscle spasm) Qty: 14 0RF No Action omega-3 fatty acids 1,000 mg capsule 1,000 mg PO DAILY dapagliflozin propanediol [Farxiga] 10 mg tablet 10 mg PO QAM Qty: 90 3RF Rx Instructions: samples given for 5 weeks 10/24/2023. ferrous sulfate [Feosol] 325 mg (65 mg iron) tablet 325 mg PO DAILY elderberry fruit 350 mg capsule PO multivitamin Tablet 1 tablet PO DAILY vitamin K2 100 mcg capsule 100 mcg PO DAILY cholecalciferol (vitamin D3) 50 mcg (2,000 unit) capsule 50 mcg PO DAILY prednisone 20 mg tablet 40 mg PO . q.a.m. Qty: 10 0RF amitriptyline 50 mg tablet 50 mg PO QHS Qty: 90 3RF polyethylene glycol 3350 [Miralax] 17 gram/dose powder 17 g PO DAILY PRN (Reason: constipation) Qty: 238 5RF lidocaine 4 % adhesive patch,medicated 1 patch topical DAILY PRN (Reason: pain) Patient Comments: used 12 hours on and 12 hours off as needed metformin 500 mg tablet extended release 24 hr 1,000 mg PO BID Qty: 360 3RF diclofenac sodium 1 % gel 2 g topical ONCE Qty: 100 0RF Rx Instructions: apply to single elbow, wrist or hand; for hand includes palm/fingers/back of hand omeprazole 40 mg capsule,delayed release(DR/EC) 40 mg PO DAILY Qty: 30 11RF amlodipine 5 mg tablet 5 mg PO DAILY Qty: 90 3RF tamsulosin 0.4 mg capsule 0.4 mg PO DAILY Qty: 90 3RF fluticasone propionate [Allergy Relief (fluticasone)] 50 mcg/actuation spray,suspension 1 spray NASAL BID Qty: 48 3RF atorvastatin 10 mg tablet 10 mg PO DAILY Qty: 90 3RF irbesartan 150 mg tablet 150 mg PO DAILY Qty: 90 3RF hydrochlorothiazide 12.5 mg tablet 12.5 mg PO DAILY Qty: 90 3RF tramadol 50 mg tablet 50 mg PO Q6H PRN (Reason: pain) Qty: 120 5RF Rx Instructions: take with acetaminophen 325 mg zolpidem 10 mg tablet 10 mg PO . q.h.s. PRN (Reason: insomnia) Qty: 90 1RF Rx Instructions: not covered by insurance. Patient will pay rubi. Follow-up/Referrals: Mukesh Pickens MD [Physician] - Cade Houston MD [Primary Care Provider] -
[2024-09-18] MEDS: MORPHINE SULFATE (*CRX) 2 MG/ML INJ IV PUSH
[2024-09-18] MEDS: LIDOCAINE 5% PATCH 1 PATCH TRANSDERM
[2024-09-18 00:05] LABS: Hematocrit 38.3 % (42.0-52.0); Hemoglobin 11.4 g/dL (14.0-18.0); Immature Granulocyte Percent A 0.4 % (0-0.5); Immature Platelet Fraction Pct 6.7 % (0.9-11.2); Lymphocytes Absolute Auto 3.27 K/mm3 (0.9-3.2); Mean Corpuscular HGB Conc 29.8 g/dl (32-36); Mean Corpuscular Hemoglobin 21.2 pg (26-34); Mean Corpuscular Volume 71.3 fl (80-100); Nucleated Red Blood Cells Absolute Auto 0.000 K/mm3 (0.0-0.012); Nucleated Red Blood Cells Perc 0.0 % (0.0-0.2); Platelet Count Result 208 k/mm3 (150-375); Red Blood Count 5.37 M/mm3 (4.6-6.20); White Blood Count 7.9 K/mm3 (4.5-10.0)
[2024-09-18 00:17] LABS: Non Pathogenic Casts 0-2
[2024-09-18 00:20] LABS: Add Urine Microscopic? YES; Appearance Urine Clear (Clear); Glucose Urine UA Negative (Negative); Leukocyte Esterase Ur Negative LEU/UL (Negative); Nitrate Urine Negative (Negative); Specific Grav Ur 1.015 (1.001-1.035)
[2024-09-18 00:24] LABS: Anisocytosis 1+; Band Neutrophils Percent 0 % (0-6); Ovalocytes 1+; Schistocytes None Seen
[2024-09-18 00:25] LABS: Alanine Aminotransferase 19 U/L (6-50); Albumin Level 4.2 g/dL (3.5-5.1); Alkaline Phosphatase 83 U/L (38-126); Anion Gap 9 mmol/L (4-12); Aspartate Amino Transferase 24 U/L (17-59); Bilirubin,Total 0.2 mg/dL (0.2-1.3); Blood Urea Nitrogen 22 mg/dL (9-20); Calcium 9.6 mg/dL (8.4-10.2); Carbon Dioxide 25 mmol/L (22-30); Chloride 103 mmol/L (98-107); Estimated CRCL calculation 38 ml/min; Estimated Glomerular Filt Rate 38; Glucose 145 mg/dL (65-110); Potassium 4.2 mmol/L (3.4-5.0); Sodium 137 mmol/L (137-145); Total Protein 8.0 g/dL (6.3-8.2)
== END 2024-09-18 01:21 | disposition home or self-care (01) ==
PROVIDERS: Emergency Provider Physician Assistant; PCP Family Medicine
DX: R10.9 Unspecified abdominal pain (principal); N42.83 Cyst of prostate; E11.22 Type 2 diabetes mellitus with diabetic chronic kidney disease; I12.9 Hypertensive chronic kidney disease with stage 1 through stage 4 chronic kidney disease, or unspecified chronic kidney disease; N18.32 Chronic kidney disease, stage 3b; Q61.3 Polycystic kidney, unspecified; Z87.891 Personal history of nicotine dependence; Z79.84 Long term (current) use of oral hypoglycemic drugs; Z79.899 Other long term (current) drug therapy
CPT/HCPCS: 36415; 74176; 80053; 81001; 85025; 85055; 96374; 99284; A9270; J2270